=== PATIENT | female | born 1985 | race Caucasian/White ===

== ENCOUNTER → 2020-09-03 02:40 | Outpatient (CLI) | payer OTHER, SELFPAY ==
[2020-09-03 17:20] LABS: SARS-CoV-2 RNA PCR Negative
== END ==
PROVIDERS: PCP Internal Medicine; Visit Provider Obstetrics & Gynecology
DX: Z01.812 Encounter for preprocedural laboratory examination (principal); Z20.822 Contact with and (suspected) exposure to COVID-19
CPT/HCPCS: C9803; U0003; U0005

== ENCOUNTER 2020-09-04 00:45 | Day surgery (SDC) | payer OTHER, SELFPAY ==
--- NOTE | 2020-09-02 11:07 | PM.IMHP ---
H&P: HPI History of Present Illness Date/Time: 09/02/20 11:07 Chief Complaint: . Trimester missed AB Narrative: Yoly Kirkland is a 34 year old female whose last menstrual period was 10 and half weeks ago presents for suction D&C secondary to missed AB. Stat ultrasound in the office 3 9 confirming tubal demise at 7 and half weeks risks and benefits reviewed Review of Systems Review of Systems: All systems reviewed & are unremarkable except as noted in HPI and below Exam Const: General: no acute distress Eyes: General: appearance normal, both eyes and all related structures Neck: Neck: supple and no JVD Thyroid: thyroid normal Resp: Effort & Inspection: normal respiratory effort Auscultation: clear to auscultation bilaterally Cardio: Rate: regular rate Rhythm: regular rhythm GI: Inspection: non-distended GI Palp: Yes Soft to palpation, No Tenderness to palpation present (GI) and No Guarding due to palpation present (GI) Auscultation: normal bowel sounds : General: Yes bladder normal to palpation External Female Exam: normal external appearance Speculum Exam - Vagina: normal vaginal discharge and No vaginal bleeding Speculum Exam - Cervix: nontender Bimanual exam- vagina & uterus: bladder normal to palpation and No Cervical tenderness present OB/external & speculum: No vaginal bleeding Skin: General skin exam: no rashes or lesions noted Extrem: General: normal to inspection and no edema Psych: Mental Status: mental status grossly normal Affect: normal affect Assessment and Plan Additional Plan impression: 1St trimester missed AB Plan: Suction dilatation and curettage
[2020-09-03 09:27] VITALS: BMI 34.2
--- NOTE | 2020-09-03 12:26 | WPDANESEPPF ---
Anes - Initial Pre Proc Eval Procedure: Operation Date: 09/04/20 13:30 Proposed Procedures p Suction Dilation And Curettage - Ulysses Garcia MD Date/Time: 09/03/20 12:26 Surgeon: Ulysses Garcia MD Pre Op Diagnosis: Missed AB Patient Data Age: 34 Gender: F Height: 1.57 m Weight: 85 kg Allergies Allergy/AdvReac Type Severity Reaction Status Date / Time codeine Allergy Severe Dyspnea / Verified 09/04/20 13:03 SOB/itching Home Medications Medication Instructions Recorded Confirmed Type Classic 1 tab-cap PO DAILY 09/03/20 09/03/20 History albuterol sulfate 1 inh INHALATION Q4H PRN 09/03/20 09/04/20 History duloxetine 30 mg PO DAILY 09/03/20 09/04/20 History ondansetron HCl 4 mg PO Q6H PRN 09/03/20 09/03/20 History hydrocodone-acetaminophen 1 tablet PO Q6H PRN #20 tablet 09/04/20 Rx Patient hx anesthesia problems: none Family hx anesthesia problems: none PMFSH Past Medical History Medical History (Updated 09/04/20 @ 06:09 by Ulysses Garcia MD) Anxiety Asthma Depression Obesity PUD (peptic ulcer disease) Social History Social History Smoking status: Never smoker Living arrangements: with family Spiritual care concerns: No Anes - Eval Final PreProcedure Day of Procedure 09/03/20 12:26 Patient weight: obese Heart: regular rate and rhythm Lungs: clear to auscultation and normal air movement Airway: Mallampati scale class II Neurological: alert and oriented Last oral intake: >/= 8 hours ASA classification: II Emergent: no Anesthetic plan: proceed Anesthesia type and monitoring: general GIVS and LMA Informed Consent: The patient's anesthetic plan and its attendant risks and benefits were discussed with the patient/family/POA. Questions were solicited and answers provided to the satisfaction of the patient/family/POA.
--- NOTE | 2020-09-04 06:08 | WPDHPUPDATE1 ---
History and Physical Update Update Date/Time: 09/04/20 06:08 History and Physical has been reviewed, including an updated exam of the patient. There are NO changes in the patient's condition. Risks, benefits, and alternatives have been discussed and questions answered. Patient agrees to proceed with procedure.
[2020-09-04 12:31] VITALS: BP 139/98; PULSE 101; RESP 16; TEMP 36.7; O2SAT 99
[2020-09-04] MEDS: LACTATED RINGERS 1,000 ML 30 ML IV CONT (13:17)
[2020-09-04 13:21] LABS: Hematocrit 35.2 % (37.0-47.0); Hemoglobin 12.3 g/dL (12.0-15.0)
--- NOTE | 2020-09-04 13:26 | SUR.PREOP ---
pt informed delay in procedure.
[2020-09-04] MEDS: LIDOCAINE HCL 1% LOCAL INJ 20 ML VIAL 50 ML INFILTRATE (14:22)
--- NOTE | 2020-09-04 14:28 | PM.PROC ---
Procedure Note - Detailed Date of procedure: 09/04/20 Pre-op diagnosis: Missed AB Surgeon: Ulysses Garcia MD Postop diagnosis: Missed AB Procedure: Suction dilatation curettage Anesthesia: IV sedation local Findings,: Products of conception uterus sounded to 11cm. EBL: 75cc Complications: None Description of procedure: The patient is prepped draped in the normal sterile fashion placed in the dorsal lithotomy position. Under excellent IV sedation weighted speculum placed posterior fornix of vagina. Anterior lip of the cervix grasped with a single-tooth tenaculum. 2.5cc of 1% xylocaine anesthesia placed at 2:48 a.m. 10:00 a.m. respectively of the cervix. Uterus sounded to 11cm. Serial dilatation with fragmented dilators performed followed by passes of 10. Suction curette removing a moderate to large amount of tissue. When a good grating sound was heard no further tissue could be removed. Instruments were removed and accounted for the patient was awakened. All sponge, needle, instrument counts were correct. There were no immediate complications
[2020-09-04 14:31] VITALS: BP 136/93; PULSE 92; RESP 16; O2SAT 99
[2020-09-04] MEDS: fentaNYL CITRATE INJ (*CRX) 100 MCG/2 ML VIAL 25 MCG IV PUSH ×4 (14:54→15:05)
[2020-09-04 15:00] VITALS: BP 127/84; PULSE 86; RESP 16; O2SAT 99
[2020-09-04 15:30] VITALS: BP 114/74; PULSE 86; RESP 16
[2020-09-04] MEDS: oxyCODONE HCL (*CRX) 5 MG TAB IR PO (15:43)
[2020-09-04 16:00] VITALS: BP 114/76; PULSE 89; RESP 16
[2020-09-04 16:10] VITALS: BP 114/68; PULSE 85; RESP 16
== END 2020-09-04 16:35 | disposition home or self-care (01) ==
PROVIDERS: PCP Internal Medicine; Visit Provider Obstetrics & Gynecology
PROC: (CPT 59820; principal; 2020-09-04 13:30)
DX: O02.1 Missed abortion (principal); J45.909 Unspecified asthma, uncomplicated; F41.8 Other specified anxiety disorders; Z79.51 Long term (current) use of inhaled steroids
CPT/HCPCS: 59820; 36415; 85014; 85018; 85461; 88305; A9270; J2250; J2704; J3010; J7120

== ENCOUNTER 2022-09-22 08:22 | Outpatient (CLI) | payer BC, SELFPAY ==
--- NOTE | 2022-09-22 11:00 | NEURO_ITS ---
Impression: Patient reports a history of bilateral hand paresthesias. # Bilateral mild Carpal Tunnel Syndrome, left more than right. # Normal needle/EMG exam. # Clinical correlation recommended. Motor Nerve Conduction Upper Extremities Median Nerve Conduction Velocity (m/sec) Terminal Latency (msec) Response Voltage(mV) Elbow-Wrist Wrist Elbow Wrist Right 52 3.2 2 5 Left 51 4.5 4 3 Ulnar Nerve Conduction Velocity (m/sec) Terminal Latency (msec) Response Voltage(mV) Above Elbow Below Elbow Wrist Above Elbow Below Elbow Wrist Right 63 65 2.0 5 5 6 Left 62 60 2.0 6 6 7 F-Wave Latency Median (ms) Ulnar (ms) Right 26.0 25.4 Left 26.3 25.0 Sensory Nerve Conduction Upper Extremities Median Nerve Stimulation Terminal Latency (msec) Wrist/Digit Response Voltage (uV) Wrist Right 3.9/4.3 11 Left 4.3/5.1 08/06 Ulnar Nerve Stimulation Terminal Latency (msec) Wrist/Digit Response Voltage (uV) Wrist Right 2.0 20 Left 1.8 28 Radial Nerve Terminal Latency (msec) Response Voltage(mV) Right 1.6 48 Left 2.5 39 Left Right Muscles Examined Fibrillation Fasciculation Scarcity Voltage Duration Left Right Left Right Left Right Left Right Left Right Deltoid Biceps X X Brachioradialis Triceps X X Pronator Teres X X Ext Indicis X X Ext Digitorum X X Abd Poll Brev X X 1st Dorsal Interosseus Abd Dig Min MTDD
== END 2022-09-22 08:23 | disposition home or self-care (01) ==
LOC: ANHNEURO 08:23
PROVIDERS: PCP Family Medicine; Visit Provider Family Medicine
DX: R20.0 Anesthesia of skin (principal); G56.03 Carpal tunnel syndrome, bilateral upper limbs
CPT/HCPCS: 95886; 95911

== ENCOUNTER 2022-10-06 21:47 | Observation (INO) | payer BC, SELFPAY ==
[2022-10-06 22:03] VITALS: BMI 44.4
--- NOTE | 2022-10-06 22:04 | OBADM ---
This patient, Yoly Santacruz, admitted to the OB room OB Post 117 for observation. Patient/family oriented to hospital policies and general routines including ID bracelet, bed and alarms, visiting hours, pain management, procedures, bathroom and other care routines, personal items, smoking policy, room service/diet, and visiting hours. Patient/Family are encouraged to report perceived risks to care and to ask questions if they do not understand what they are told or what they should do.
[2022-10-06 22:31] LABS: Appearance Urine Clear (Clear); Bilirubin Urine Negative (Negative); Blood Urine Negative (Negative); Color Urine Yellow (Yellow); Glucose Urine UA Negative (Negative); Ketones Urine Negative (Negative); Leukocyte Esterase Ur Negative LEU/UL (Negative); Nitrate Urine Negative (Negative); Protein Urine Negative (Negative); Specific Grav Ur 1.009 (1.001-1.035); Urobilinogen Urine 0.2 mg/dL (<2.0); pH Urine 6.5 (5.0-9.0)
[2022-10-06 22:41] LABS: Add Urine Microscopic? NO
--- NOTE | 2022-10-08 09:16 | P.PNOB_ITS ---
OB - Triage/Final Diagnosis Visit Information Date of evaluation: 10/08/22 Reason for evaluation: threatened labor Comments/Additional reasons for admission: I have assessed the risk for this patient, Yoly Santacrzu, and determined that she would benefit from observation care. Evaluation Laboratory results: Laboratory Tests 10/06/22 22:20 Urine Color Yellow Urine Appearance Clear Urine pH 6.5 Ur Specific [place] 1.009 Urine Protein Negative Urine Glucose (UA) Negative Urine Ketones Negative Ur Blood (Man) Negative Urine Nitrate Negative Urine Bilirubin Negative Urine Urobilinogen 0.2 Leukocyte Esterase Rfl Negative
== END 2022-10-06 23:50 | disposition home or self-care (01) ==
PROVIDERS: Admitting Provider Obstetrics & Gynecology; PCP Family Medicine; Visit Provider Obstetrics & Gynecology
DX: O47.03 False labor before 37 completed weeks of gestation, third trimester (principal); Z3A.34 34 weeks gestation of pregnancy
CPT/HCPCS: 81003; G0378; G0379

== ENCOUNTER 2022-10-14 09:32 | Outpatient (CLI) | payer BC, SELFPAY ==
[2022-10-14 09:44] VITALS: PULSE 108; O2SAT 97
[2022-10-14 09:51] VITALS: BP 147/98; PULSE 112
[2022-10-14 10:00] VITALS: BP 136/86; PULSE 121
[2022-10-14 10:15] VITALS: BP 133/86; PULSE 111
[2022-10-14 10:27] LABS: Basophils Absolute Auto 0.1 K/mm3 (0.0-0.1); Basophils Percent Auto 0.4 % (0.2-1.2); Eosinophils Absolute Auto 0.2 K/mm3 (0-0.3); Eosinophils Percent Auto 1.1 % (0-4.4); Hemoglobin 12.9 g/dL (12.0-15.0); Immature Granulocyte Absolute 0.36 K/mm3 (0.00-0.031); Immature Granulocyte Percent A 2.2 % (0-0.5); Lymphocytes Absolute Auto 2.56 K/mm3 (0.9-3.2); Mean Corpuscular HGB Conc 33.1 g/dl (32-36); Mean Corpuscular Hemoglobin 29.3 pg (26-34); Mean Corpuscular Volume 88.4 fl (80-100); Mean Platelet Volume 10.7 fl (7.4-10.4); Monocytes Absolute Auto 1.2 K/mm3 (0.1-0.6); Monocytes Percent Auto 7.7 % (2.6-8.5); Neutrophils Absolute Auto 11.6 K/mm3 (1.3-6.7); Neutrophils Percent Auto 72.6 % (45.5-73.1); Platelet Count Result 277 k/mm3 (150-375); Red Blood Count 4.41 M/mm3 (4.2-5.4); Red Cell Distribution Width 13.9 % (11.5-14.5)
[2022-10-14 10:37] LABS: Alanine Aminotransferase 18 U/L (6-35); Albumin Level 3.7 g/dL (3.5-5.1); Alkaline Phosphatase 141 U/L (38-126); Anion Gap 7 mmol/L (8-16); Aspartate Amino Transferase 18 U/L (14-36); Bilirubin,Total 0.3 mg/dL (0.2-1.3); Blood Urea Nitrogen 5 mg/dL (7-17); Calcium 9.2 mg/dL (8.4-10.2); Carbon Dioxide 23 mmol/L (22-30); Chloride 105 mmol/L (98-107); Estimated Glomerular Filt Rate > 60; Glucose 74 mg/dL (65-110); Potassium 3.9 mmol/L (3.4-5.0); Sodium 135 mmol/L (137-145); Uric Acid 4.7 mg/dL (2.5-7.5)
[2022-10-14 10:38] LABS: Creatinine Urine 17.4 mg/dL; Total Protein Urine Random 16 mg/dL; Ur Ttl Prot Creatinine Ratio 0.92 mg/mg (0-0.20)
[2022-10-14 10:44] LABS: Appearance Urine Clear (Clear); Bacteria Urine None Seen /hpf; Bilirubin Urine Negative (Negative); Blood Urine 3+ (Negative); Color Urine Yellow (Yellow); Glucose Urine UA Negative (Negative); Ketones Urine Negative (Negative); Leukocyte Esterase Ur Negative LEU/UL (NEGATIVE); Need Manual Microscopic Need Manual; Nitrate Urine Negative (Negative); Non Pathogenic Casts 0-2; Protein Urine Negative (Negative); RBC Urine 0-2 /hpf (0-2); Specific Grav Ur 1.003 (1.001-1.035); Squamous Epithelial Cell Urine None seen /hpf (Few); Urobilinogen Urine 0.2 mg/dL (<2.0); WBC Urine 0-5 /hpf (0-3)
[2022-10-14 11:16] VITALS: BP 133/86; PULSE 112
--- NOTE | 2022-10-14 11:22 | PC.NURSE ---
Pt here from Dr. Catarino Godoy office for PIH evaluation. Labs called to Dr. Catarino Godoy. Pt to be discharged home and return tomorrow for NST BP check when she returns her urine.
[2022-10-14 13:42] LABS: Add Urine Microscopic? YES
== END 2022-10-14 11:30 | disposition home or self-care (01) ==
LOC: ANHOBOP 09:35 → ANHOBPP 09:39
PROVIDERS: PCP Family Medicine; Visit Provider Obstetrics & Gynecology
DX: O13.9 Gestational [pregnancy-induced] hypertension without significant proteinuria, unspecified trimester (principal); Z3A.00 Weeks of gestation of pregnancy not specified
CPT/HCPCS: 36415; 59025; 80053; 81001; 82570; 84156; 84550; 85025; 87086; 99199

== ENCOUNTER 2022-10-15 13:20 | Outpatient (NON) | payer BC, SELFPAY ==
[2022-10-15 15:16] LABS: Total Volume 24 Hour Urine 1800 ml
[2022-10-15 15:18] LABS: Total Protein Urine 24 Hr 126 mg/24hr (28-141); Total Protein Urine Random 7 mg/dL
[2022-10-15 15:19] LABS: Creatinine 24 Hour Urine 1.7 gm/24 (0.8-1.8); Creatinine Urine 96.6 mg/dL
== END 2022-10-15 13:21 | disposition home or self-care (01) ==
LOC: ANHOBOP 13:36
PROVIDERS: PCP Family Medicine; Visit Provider Obstetrics & Gynecology
DX: O99.891 Other specified diseases and conditions complicating pregnancy (principal); R03.0 Elevated blood-pressure reading, without diagnosis of hypertension
CPT/HCPCS: 81050; 82570; 84156

== ENCOUNTER 2022-10-19 10:08 | Outpatient (CLI) | payer BC, SELFPAY ==
[2022-10-19 10:35] VITALS: BP 142/85; PULSE 113
[2022-10-19 10:45] VITALS: BP 152/85; PULSE 105
[2022-10-19 10:51] LABS: Basophils Absolute Auto 0.1 K/mm3 (0.0-0.1); Basophils Percent Auto 0.4 % (0.2-1.2); Eosinophils Absolute Auto 0.2 K/mm3 (0-0.3); Hematocrit 38.9 % (37.0-47.0); Hemoglobin 12.8 g/dL (12.0-15.0); Immature Granulocyte Absolute 0.34 K/mm3 (0.00-0.031); Immature Granulocyte Percent A 2.1 % (0-0.5); Lymphocytes Absolute Auto 2.41 K/mm3 (0.9-3.2); Lymphocytes Percent Auto 14.6 % (18.3-44.2); Mean Corpuscular HGB Conc 32.9 g/dl (32-36); Mean Corpuscular Hemoglobin 29.3 pg (26-34); Mean Platelet Volume 10.9 fl (7.4-10.4); Monocytes Absolute Auto 1.2 K/mm3 (0.1-0.6); Monocytes Percent Auto 7.3 % (2.6-8.5); Neutrophils Absolute Auto 12.4 K/mm3 (1.3-6.7); Neutrophils Percent Auto 74.6 % (45.5-73.1); Platelet Count Result 277 k/mm3 (150-375); Red Blood Count 4.37 M/mm3 (4.2-5.4); Red Cell Distribution Width 13.9 % (11.5-14.5); White Blood Count 16.6 K/mm3 (4.5-10.0)
[2022-10-19 11:00] VITALS: BP 139/96; PULSE 114
[2022-10-19 11:02] LABS: Alanine Aminotransferase 17 U/L (6-35); Albumin Level 3.6 g/dL (3.5-5.1); Alkaline Phosphatase 153 U/L (38-126); Anion Gap 8 mmol/L (8-16); Aspartate Amino Transferase 17 U/L (14-36); Bilirubin,Total 0.3 mg/dL (0.2-1.3); Blood Urea Nitrogen 7 mg/dL (7-17); Calcium 9.1 mg/dL (8.4-10.2); Carbon Dioxide 22 mmol/L (22-30); Chloride 105 mmol/L (98-107); Creatinine Urine 142.2 mg/dL; Estimated Glomerular Filt Rate > 60; Glucose 99 mg/dL (65-110); Potassium 4.1 mmol/L (3.4-5.0); Sodium 135 mmol/L (137-145); Total Protein Urine Random 16 mg/dL; Ur Ttl Prot Creatinine Ratio 0.11 mg/mg (0-0.20); Uric Acid 4.6 mg/dL (2.5-7.5)
[2022-10-19 11:05] VITALS: BP 139/96; PULSE 115
[2022-10-19 11:05] LABS: Appearance Urine Cloudy (Clear); Bacteria Urine 2+ /hpf; Bilirubin Urine Negative (Negative); Blood Urine 1+ (Negative); Color Urine Yellow (Yellow); Glucose Urine UA Negative (Negative); Ketones Urine Trace mg/dL (Negative); Leukocyte Esterase Ur Trace LEU/UL (NEGATIVE); Need Manual Microscopic Reviewed; Nitrate Urine Negative (Negative); Non Pathogenic Casts 0-2; Protein Urine 1+ mg/dL (Negative); Squamous Epithelial Cell Urine Occasional /hpf (Few); Urobilinogen Urine 0.2 mg/dL (<2.0); WBC Urine 21-50 /hpf (0-3)
[2022-10-19 11:06] LABS: Add Urine Microscopic? YES
[2022-10-19 11:15] VITALS: BP 137/84; PULSE 107
[2022-10-19 11:30] VITALS: BP 132/85; PULSE 110
--- NOTE | 2022-10-19 11:34 | PC.NURSE ---
VS and labs reported to MD. Discharge order received and schedule NST and blood pressure check on Tuesday.
--- NOTE | 2022-10-19 12:36 | PM.OBTRLD ---
OB - Triage/Final Diagnosis Visit Information Date of evaluation: 10/19/22 Reason for evaluation: other (Gestational hypertension) Comments/Additional reasons for admission: I have assessed the risk for this patient, Yoly Santacruz, and determined that she would benefit from observation care. Evaluation Laboratory results: Laboratory Tests 10/19/22 10/19/22 10/19/22 10:23 10:23 10:23 WBC 16.6 H RBC 4.37 Hgb 12.8 Hct 38.9 MCV 89.0 MCH 29.3 MCHC 32.9 RDW 13.9 Plt Count 277 MPV 10.9 H Immature Gran % (Auto) 2.1 H Neut % (Auto) 74.6 H Lymph % (Auto) 14.6 L [place] % (Auto) 7.3 Eos % (Auto) 1.0 Baso % (Auto) 0.4 Lymph # (Auto) 2.41 [place] # (Auto) 1.2 H Eos # (Auto) 0.2 Baso # (Auto) 0.1 Abs Immat Gran (auto) 0.34 H Absolute Neuts (auto) 12.4 H Absolute Nucleated RBC 0.0 Nucleated RBC % 0.0 Sodium Potassium Chloride Carbon Dioxide Anion Gap BUN Creatinine Estim Creat Clear Calc Estimated GFR Glucose Uric Acid Calcium Total Bilirubin AST ALT Alkaline Phosphatase Total Protein Albumin Urine Color Yellow Urine Appearance Cloudy H Urine pH 6.0 Ur Specific [place] 1.020 Urine Protein 1+ H Urine Glucose (UA) Negative Urine Ketones Trace H Ur Blood (Man) 1+ H Urine Nitrate Negative Urine Bilirubin Negative Urine Urobilinogen 0.2 Ur Leukocyte Esterase Trace H Add Ur Microanalysis Reviewed Urine RBC 11-20 H Urine WBC 21-50 Ur Squamous Epith Cells Occasional Urine Bacteria 2+ H Urine Casts 0-2 U Random Total Protein 16 Urine Creatinine 142.2 Protein/Creat Ratio 2 0.11 10/19/22 10:23 WBC RBC Hgb Hct MCV MCH MCHC RDW Plt Count MPV Immature Gran % (Auto) Neut % (Auto) Lymph % (Auto) [place] % (Auto) Eos % (Auto) Baso % (Auto) Lymph # (Auto) [place] # (Auto) Eos # (Auto) Baso # (Auto) Abs Immat Gran (auto) Absolute Neuts (auto) Absolute Nucleated RBC Nucleated RBC % Sodium 135 L Potassium 4.1 Chloride 105 Carbon Dioxide 22 Anion Gap 8 BUN 7 Creatinine 0.40 L Estim Creat Clear Calc Not Reportable Estimated GFR > 60 Glucose 99 Uric Acid 4.6 Calcium 9.1 Total Bilirubin 0.3 AST 17 ALT 17 Alkaline Phosphatase 153 H Total Protein 7.0 Albumin 3.6 Urine Color Urine Appearance Urine pH Ur Specific [place] Urine Protein Urine Glucose (UA) Urine Ketones Ur Blood (Man) Urine Nitrate Urine Bilirubin Urine Urobilinogen Ur Leukocyte Esterase Add Ur Microanalysis Urine RBC Urine WBC Ur Squamous Epith Cells Urine Bacteria Urine Casts U Random Total Protein Urine Creatinine Protein/Creat Ratio 2 Vital signs: Vital Signs - 24 hr 10/19/22 10:35 10/19/22 10:45 10/19/22 11:00 Pulse Rate 113 H 105 H 114 H Blood Pressure 142/85 H 152/85 H 139/96 H Blood Pressure [Right Arm] 10/19/22 11:15 10/19/22 11:30 10/19/22 11:05 Pulse Rate 107 H 110 H 115 H Blood Pressure 137/84 132/85 Blood Pressure [Right Arm] 139/96 H
== END 2022-10-19 11:41 | disposition home or self-care (01) ==
LOC: ANHOBOP 10:12 → ANHOBPP 10:13
PROVIDERS: PCP Family Medicine; Visit Provider Obstetrics & Gynecology
DX: O13.9 Gestational [pregnancy-induced] hypertension without significant proteinuria, unspecified trimester (principal); Z3A.00 Weeks of gestation of pregnancy not specified
CPT/HCPCS: 36415; 59025; 80053; 81001; 82570; 84156; 84550; 85025; 87086; 99199

== ENCOUNTER 2022-10-25 08:29 | Outpatient (RCR) | payer BC, SELFPAY ==
[2022-08-23 09:45] VITALS: BP 131/75; PULSE 115
--- NOTE | 2022-08-23 10:00 | PC.NURSE ---
Catarino Godoy updated on the pt's decreased movement. Pt feeling and marking movement. Pt reassured and feeling better. Order received for pt to discharge with kick counts.
[2022-10-15 14:10] VITALS: BP 139/86; PULSE 102
[2022-10-22 09:35] VITALS: BP 130/82; PULSE 110
[2022-10-25 08:58] VITALS: BP 143/86; PULSE 114
== END 2022-11-21 23:59 | disposition home or self-care (01) ==
LOC: ANHOBOP 08:29
PROVIDERS: PCP Family Medicine; Visit Provider Obstetrics & Gynecology
DX: O36.8130 Decreased fetal movements, third trimester, not applicable or unspecified (principal); Z3A.28 28 weeks gestation of pregnancy; O26.893 Other specified pregnancy related conditions, third trimester; R03.0 Elevated blood-pressure reading, without diagnosis of hypertension; Z3A.36 36 weeks gestation of pregnancy; Z3A.37 37 weeks gestation of pregnancy
CPT/HCPCS: 59025

== ENCOUNTER 2022-11-01 07:03 | Outpatient (CLI) | payer BC, SELFPAY ==
[2022-11-01] VITALS (23 sets, daily range): BP systolic 128–137; BP diastolic 82–93; PULSE 91–117; O2SAT 95–100
--- NOTE | ~2022-11-01 | US_ITS ---
EXAMINATION: US OB BPP wo non-stress DATE: 11/01/2022 10:36 CDT INDICATION: Nonreassuring heart tones. TECHNIQUE: Real-time transabdominal obstetric ultrasound. FINDINGS: No prior studies for comparison. There is a single living fetus in breech presentation. The placenta is anterior without placenta pre via. cardiac activity and movement is noted with a heart rate of 122 beats per minute. Biophysical profile: breathin of 2 movement: 2 of 2 tone: 2 of 2 Amniotic flud pocket: 2 of 2 Total score: 8 of 8 IMPRESSION: 1. Single living intrauterine in breech presentation. 2: Total biophysical profile score of 02/01. Reviewed, dictated and finalized at location B. IMPRESSION: 1. Single living intrauterine in breech presentation. 2: Total biophysical profile score of 8/8.
--- NOTE | 2022-11-01 07:54 | W.PM.PROC2 ---
Procedure Note - Detailed Date of Procedure 11/01/22 Pre-op Diagnosis External Version Post-op Diagnosis Same Procedure Performed Attempted external version Surgeon Ulysses Godoy MD Anesthesia None Indications /a 37-year-old 2 para 0 at 38 half weeks gestation with moshe breech presentation. Findings Baby in moshe breech presentation. Description of Procedure Multiple attempts were made to turn the baby externally without success. The heart tones remained reassuring throughout. She stated she could no longer take the pressure and discomfort so the procedure was aborted Estimated Blood Loss 0 Drains No Packing No Pathology None sent Complications No immediate complications Condition Stable Disposition No change
--- NOTE | 2022-11-01 10:43 | PC.NURSE ---
Dr. Catarino Godoy on the unit. reviewed tracing and BPP reported 02/01. Discharge order received.
== END 2022-11-01 10:53 | disposition home or self-care (01) ==
LOC: ANHOBOP 07:07 → ANHOBPP 07:08
PROVIDERS: PCP Family Medicine; Visit Provider Obstetrics & Gynecology
DX: O32.1XX0 Maternal care for breech presentation, not applicable or unspecified (principal); Z3A.00 Weeks of gestation of pregnancy not specified
CPT/HCPCS: 76819; 99199

== ENCOUNTER 2022-11-08 08:16 | Outpatient (CLI) | payer BC, SELFPAY ==
[2022-11-08 08:50] LABS: Hematocrit 37.6 % (37.0-47.0); Hemoglobin 12.4 g/dL (12.0-15.0); Mean Corpuscular Hemoglobin 29.5 pg (26-34); Mean Corpuscular Volume 89.5 fl (80-100); Mean Platelet Volume 11.3 fl (7.4-10.4); Platelet Count Result 215 k/mm3 (150-375); Red Cell Distribution Width 14.3 % (11.5-14.5); White Blood Count 13.5 K/mm3 (4.5-10.0)
[2022-11-09 12:11] LABS: Rapid Plasma Reagin Non-Reactive (NonReactive)
== END 2022-11-08 08:17 | disposition home or self-care (01) ==
PROVIDERS: PCP Family Medicine; Visit Provider Obstetrics & Gynecology
DX: Z34.93 Encounter for supervision of normal pregnancy, unspecified, third trimester (principal); Z3A.00 Weeks of gestation of pregnancy not specified
CPT/HCPCS: 36415; 85027; 86592; 86850; 86900; 86901

== ENCOUNTER 2022-11-09 10:01 | Inpatient (IN) | payer BC, SELFPAY ==
--- NOTE | 2022-11-04 20:27 | HP_ITS ---
This report was moved to the correct visit on 11/15/2022. Original report was signed by Ulysses Tomas MD on 11/04/222026. H&P: HPI History of Present Illness Date/Time: 11/04/22 20:25 Chief Complaint: breech presentation with gestational hypertension Narrative: this is 37 year primigravida admitted a 38 half weeks gestation for primary section secondary to elevated blood pressure and breech presentation. Attempt was made at external version and this was unsuccessful. Risks and benefits of the procedure reviewed. Her blood pressures have been slightly elevated the she has been watched closely PMFSH Past Medical History Medical History Abnormal colonoscopy Anxiety Asthma Asthma BMI 40.0-44.9, adult Depression Depression Failed tendon repair Obesity PUD (peptic ulcer disease) UTI (urinary tract infection) Viral exanthemata Surgical History Surgical History H/O dilation and curettage History of tonsillectomy Family History Family History Mother Anxiety Arthritis Depression Irritable bowel Sibling Asthma Chronic pain Thyroid disease Father Diabetes mellitus Grandparent Shingles Social History Social History Smoking status: Former smoker Tobacco type: cigarettes Smoking end date: 01/08/19 Alcohol intake: current Alcohol use details: Patient drinks alcohol approx 1 x mo. Substance use: never Substance use type: marijuana Other substance usage details: Patient uses marijuana approx 1 x mo. Living arrangements: with family Spiritual care concerns: No Meds Home Medications and Allergies Home Medications Medication Instructions Recorded Confirmed Type albuterol sulfate 90 mcg/actuation 1 inh inhalation Q4H PRN 09/03/20 07/26/22 History aerosol inhaler Bronchospasm vitamin#30 30 mg iron-10 cap PO 06/29/22 07/26/22 History mg iron-folic acid 1 mg-omg3 capsule Allergies Allergy/AdvReac Type Severity Reaction Status Date / Time codeine Allergy Severe Dyspnea / Verified 10/14/22 10:33 SOB/itching Exam Const: General: cooperative, healthy appearing, comfortable and overweight Orientation/consciousness: oriented to person, oriented to place and oriented to time HENMT: Head: normal to inspection Chest: Chest palpation & inspection: normal inspection of the chest Resp: Effort & Inspection: normal respiratory effort Cardio: Rate: regular rate Rhythm: regular rhythm Heart sounds: S1 normal heart sound present and S2 normal heart sound present GI: Inspection: normal to inspection ( gravid soft uterus) Auscultation: normal bowel sounds : External Female Exam: normal external appearance Speculum Exam - Vagina: normal appearance of the vagina Assessment and Plan Assessment and plan (1) Term : Code(s): Z34.90 - Encounter for supervision of normal , unspecified, unspecified trimester Status: Acute (2) Breech presentation: Code(s): O32.1XX0 - Maternal care for breech presentation, not applicable or unspecified Status: Acute (3) Gestational hypertension: Code(s): O13.9 - Gestational [-induced] hypertension without significant proteinuria, unspecified trimester Status: Acute Plan primary low-transverse ce
[2022-11-09] VITALS (46 sets, daily range): BP systolic 88–147; BP diastolic 38–87; PULSE 84–237; RESP 14–24; TEMP 36.4–36.8; O2SAT 78–100; BMI 46.7
--- NOTE | 2022-11-09 07:17 | WPDHPUPDATE1 ---
History and Physical Update Update Date/Time: 11/09/22 07:17 History and Physical has been reviewed, including an updated exam of the patient. There are NO changes in the patient's condition. Risks, benefits, and alternatives have been discussed and questions answered. Patient agrees to proceed with procedure.
--- NOTE | 2022-11-09 07:18 | WPDHPUPDATE1 ---
History and Physical Update Update Date/Time: 11/09/22 07:18 History and Physical has been reviewed, including an updated exam of the patient. There are NO changes in the patient's condition. Risks, benefits, and alternatives have been discussed and questions answered. Patient agrees to proceed with procedure.
--- NOTE | 2022-11-09 08:23 | P.PNAN_ITS ---
Anes - Initial Pre Proc Eval Procedure: Operation Date: 11/09/22 12:00 Proposed Procedures p Section - Ulysses Godoy MD Date/Time: 11/09/22 08:23 Surgeon: Ulysses Godoy MD Pre Op Diagnosis: C/S Patient Data Age: 37 Gender: F Height: Weight: Allergies Allergy/AdvReac Type Severity Reaction Status Date / Time codeine Allergy Severe Dyspnea / Verified 10/14/22 10:33 SOB/itching Home Medications Medication Instructions Recorded Confirmed Type albuterol sulfate 90 mcg/actuation 1 inh inhalation Q4H PRN 09/03/20 11/09/22 History aerosol inhaler Bronchospasm vitamin#30 30 mg iron-10 1 cap PO DAILY 06/29/22 11/09/22 History mg iron-folic acid 1 mg-omg3 capsule Patient hx anesthesia problems: none Family hx anesthesia problems: none Results Review: All pre-operative results and documents have been reviewed as part of the pre- operative evaluation. [facility] Past Medical History Medical History Abnormal colonoscopy Anxiety Asthma Asthma BMI 40.0-44.9, adult Depression Depression Failed tendon repair Obesity PUD (peptic ulcer disease) UTI (urinary tract infection) Viral exanthemata Surgical History Surgical History H/O dilation and curettage History of tonsillectomy Family History Family History Mother Anxiety Arthritis Depression Irritable bowel Sibling Asthma Chronic pain Thyroid disease Father Diabetes mellitus Grandparent Shingles Social History Social History Smoking status: Never smoker Tobacco type: cigarettes Second hand tobacco smoke exposure: Yes Smoking end date: 01/08/19 Alcohol intake: current Alcohol use details: Patient drinks alcohol approx 1 x mo. Substance use: never Substance use type: marijuana Other substance usage details: Patient uses marijuana approx 1 x mo. Lack of Transportation: No Lack of Food: Never True Current Housing: I Have Housing Concerned About Future Housing: No Difficulty Paying Gas/Electric Bills: No Difficulty Paying for Meds: No Currently Unemployed: No Education: Associate Degree Difficulty w/ Childcare or Family Care: No Living arrangements: with family Spiritual care concerns: No Anes - Eval Final PreProcedure Day of Procedure 11/09/22 08:23 Patient weight: obese Heart: regular rate and rhythm Lungs: clear to auscultation and normal air movement Airway: Mallampati scale class II Neurological: alert and oriented Last oral intake: >/= 8 hours ASA classification: III Emergent: no Anesthetic plan: proceed Anesthesia type and monitoring: regional spinal Results Review: All pre-operative results and documents have been reviewed as part of the pre- operative evaluation. Informed Consent: The patient's anesthetic plan and its attendant risks and benefits were discussed with the patient/family/POA. Questions were solicited and answers provided to the satisfaction of the patient/family/POA.
[2022-11-09] MEDS: LACTATED RINGERS 1,000 ML 999 ML IV CONT (10:38)
--- NOTE | 2022-11-09 12:25 | W.PM.PROC2 ---
Procedure Note - Detailed Date of Procedure 11/09/22 Pre-op Diagnosis C/S breech Post-op Diagnosis Same Procedure Performed primary low-transverse section Surgeon Ulysses Godoy MD Anesthesia Spinal Indications 39 week with breech presentation failed external version Findings female infant breech to maternal left Description of Procedure patient was prepped draped in normal sterile fashion placed in supine position. Under excellent spinal anesthetic the abdomen was entered in Pfannenstiel fashion progressive layers of fascia. fashion sized midline cured upward outward fashion bilaterally. Underlying muscles were sharply dissected. Parietal peritoneum below by [place] clamps and by sharp dissection. This carried superiorly and inferiorly the blood dome of the bladder. Bladder blade placed and a bladder flap formed. Bladder blade returned and a low-transverse incision made the breech was delivered to the maternal left. Next spot medially cut medially and the head delivered in the flexed position. Cord clamped times and cut and infant passed off the table an excellent cry given Apgars of 8 5minutes respectively. Placenta delivered intact manually after drawn cord blood. After assuring no membranes remained in the uterus, the uterus was closed in continuous running locking 0 Vicryl lateral edge to lateral edge. This followed by 2nd imbricating running locking 0 Vicryl edge to edge. Hemostasis was assured. Ovaries and tubes appeared within normal limits the uterus was returned the abdomen. Hysterotomy incision inspected 1 last time no hemostatic. Laps removed and accounted for. Fascia closed with continuous running 0 Vicryl from lateral edge to midline bilateral. Irrigation subcutaneous layer the skin closed with 4 Monocryl glue. Blood loss was 140cc. All sponge, needle, instrument counts correct. There were no immediate complications Estimated Blood Loss 140 Drains No Packing No Pathology None sent Complications No immediate complications Condition Stable Disposition PACU
--- NOTE | 2022-11-09 13:23 | P.DS_ITS ---
DS: Admitting Diagnosis Discharge Date 11/12/2022 Admitting Diagnosis breech presentation at term DS: Discharge Diagnosis Discharge Diagnosis (1) Gestational hypertension: Code(s): O13.9 - Gestational [-induced] hypertension without significant proteinuria, unspecified trimester Status: Acute (2) Term : Code(s): Z34.90 - Encounter for supervision of normal , unspecified, unspecified trimester Status: Acute DS: Summary Hospital Course Reason for hospitalization: patient was admitted for primary section secondary to breech pr esentation failed external version Hospital Course: the patient underwent an unremarkable primary section on 11/09/2022. Her hospital course. She was ambulating eating regular voiding without difficulty generally without complaints. Routine discharge instructions were given Time Spent with Patient Time attestation: Total time spent providing and/or coordinating discharge services: Exam Const: General: cooperative, healthy appearing and comfortable Nutritional Appearance: overweight Orientation/consciousness: oriented to person, oriented to place and oriented to time Resp: Effort & Inspection: normal respiratory effort Cardio: Rate: regular rate Rhythm: regular rhythm Heart sounds: S1 normal heart sound present and S2 normal heart sound present GI: Inspection: normal to inspection ( fundus firm below the umbilicus) and incision ( wound is clean dry and intact) Discharge Plan Discharge Attending physician on discharge: Ulysses Tomas Discharging Clinician: Ulysses Tomas Patient Disposition: Home, Self-Care Activity: no shower, no straining, may drive after 2 weeks and pelvic rest Diet: heart healthy Wound Care Instructions: follow printed instructions Patient Instructions: Antibiotic Form Stand Alone Forms: General Discharge Information Follow-up/Referrals: Ulysses Tomas MD [Physician] - Discharge Medications: New tramadol 50 mg tablet 50 mg PO Q4H PRN (Reason: pain) Qty: 30 0RF No Action PNV #[id number] 30 mg iron-10 mg iron-1 mg capsule 1 cap PO DAILY albuterol sulfate 90 mcg/actuation HFA aerosol inhaler 1 inh INHALATION Q4H PRN (Reason: Bronchospasm) Date of admission: 11/09/22 10:01 Primary Care Provider: Adolfo Mixon Admitting Provider: Ulysses Tomas Attending physician on admission: Ulysses Tomas Condition: Stable
[2022-11-09] MEDS: OXYTOCIN 30 UNITS/NS 500 ML 30 UNITS/500 ML BAG 125 UNITS IV CONT (13:30)
[2022-11-09] MEDS: KETOROLAC 30 MG/ML VIAL (*BKC) IV PUSH ×2 (15:20→21:38)
[2022-11-09] MEDS: ONDANSETRON INJ 4 MG/2 ML VIAL IV PUSH (16:27)
[2022-11-09] MEDS: DEXTROSE 5%/0.45% SOD CHL 1,000 ML 125 ML IV CONT (19:04)
[2022-11-10] MEDS: KETOROLAC 30 MG/ML VIAL (*BKC) IV PUSH (03:29)
[2022-11-10 04:00] VITALS: BP 128/60; PULSE 104; RESP 18; TEMP 36.7; O2SAT 97
[2022-11-10 04:55] LABS: Basophils Percent Auto 0.2 % (0.2-1.2); Eosinophils Absolute Auto 0.1 K/mm3 (0-0.3); Eosinophils Percent Auto 0.8 % (0-4.4); Hematocrit 33.9 % (37.0-47.0); Immature Granulocyte Absolute 0.24 K/mm3 (0.00-0.031); Immature Granulocyte Percent A 1.6 % (0-0.5); Lymphocytes Absolute Auto 1.91 K/mm3 (0.9-3.2); Mean Corpuscular HGB Conc 32.4 g/dl (32-36); Mean Corpuscular Hemoglobin 29.4 pg (26-34); Mean Corpuscular Volume 90.6 fl (80-100); Mean Platelet Volume 11.8 fl (7.4-10.4); Monocytes Absolute Auto 1.2 K/mm3 (0.1-0.6); Monocytes Percent Auto 7.9 % (2.6-8.5); Neutrophils Absolute Auto 11.2 K/mm3 (1.3-6.7); Neutrophils Percent Auto 76.5 % (45.5-73.1); Nucleated Red Blood Cells Perc 0.1 % (0.0-0.2); Platelet Count Result 219 k/mm3 (150-375); Red Blood Count 3.74 M/mm3 (4.2-5.4); Red Cell Distribution Width 14.3 % (11.5-14.5); White Blood Count 14.6 K/mm3 (4.5-10.0)
--- NOTE | 2022-11-10 06:10 | P.PNOB_ITS ---
OB - PN: Subj Subjective Date/time seen: 11/10/22 06:10 Patient comments: no complaints and pain well controlled baby status: doing well OB - PN: Obj Data Labs 11/10/22 03:28 Labs: Laboratory Results - last 24 hr 11/10/22 03:28 WBC 14.6 H RBC 3.74 L Hgb 11.0 L Hct 33.9 L MCV 90.6 MCH 29.4 MCHC 32.4 RDW 14.3 Plt Count 219 MPV 11.8 H Immature Gran % (Auto) 1.6 H Neut % (Auto) 76.5 H Lymph % (Auto) 13.0 L [place] % (Auto) 7.9 Eos % (Auto) 0.8 Baso % (Auto) 0.2 Lymph # (Auto) 1.91 [place] # (Auto) 1.2 H Eos # (Auto) 0.1 Baso # (Auto) 0.0 Abs Immat Gran (auto) 0.24 H Absolute Neuts (auto) 11.2 H Absolute Nucleated RBC 0.0 Nucleated RBC % 0.1 OB - PN A/P Plan day: 1 Plan: routine care Time Spent With Patient Time: Total time spent is greater than 50% in coordination of care (as documented) at patient's floor/unit and/or counseling patient: Time with patient: less than 15 minutes Exam Const: General: cooperative, healthy appearing and comfortable Nutritional Appearance: average body habitus Orientation/consciousness: oriented to person, oriented to place and oriented to time HENMT: Head: normal to inspection Resp: Effort & Inspection: normal respiratory effort Cardio: Rate: regular rate Rhythm: regular rhythm Heart sounds: S1 normal heart sound present and S2 normal heart sound present GI: Inspection: normal to inspection and incision ( wound clean dry and intact)
[2022-11-10] MEDS: traMADol HCL (*CRX) 50 MG TABLET PO ×3 (08:45→20:45)
[2022-11-10] MEDS: DOCUSATE SODIUM 100 MG CAPSULE PO ×2 (08:45→20:45)
[2022-11-10] MEDS: MULTIVIT/MIN/PREN/FOL AC/IRON TABLET 1 TAB PO (09:00)
[2022-11-10 09:50] VITALS: BP 139/90; PULSE 108; RESP 18; TEMP 37.4; O2SAT 97
[2022-11-10 12:14] VITALS: BP 139/90; PULSE 112; RESP 16; TEMP 37.5; O2SAT 97
[2022-11-10] MEDS: IBUPROFEN 600 MG TABLET PO ×2 (13:00→20:45)
--- NOTE | 2022-11-10 14:27 | WPDANLDPN2 ---
Anes-Prog Note L&D Date/Time: 11/10/22 14:27 Comfortable throughout: section Neuraxial method: spinal Epidural/Spinal procedure site: clean & non-tender Neuro status: Neuro function grossly intact. Cardiovascular status: normal Respiratory status: normal Airway patency: baseline Mental status: baseline Post-Op hydration status: normal Vital Signs: Last Vital Signs Temp 99.5 F 11/10/22 12:14 Pulse 112 H 11/10/22 12:14 Resp 16 11/10/22 12:14 BP 139/90 11/10/22 12:14 Pulse Ox 97 11/10/22 12:14 O2 Del Method Room Air 11/10/22 08:30 Pain score (VAS): 0/10 I/O: Intake & Output 11/09/22 11/10/22 11/10/22 23:59 07:59 15:59 Intake Total 500 3150 1000 Output Total 200 1400 800 Balance 300 1750 200 Post-procedural complaints: none Patient feedback: Patient satisfied with anesthetic care.
--- NOTE | 2022-11-10 14:27 | WPDANLDNPN2 ---
Anes-Prog Note L&D-Neuraxial Date/Time: 11/10/22 14:27 Neuraxial medications: intrathecal PF morphine Opiod-related complaints: none Patient feedback: Patient satisfied with post-operative pain management.
--- NOTE | 2022-11-10 15:35 | PC.NURSE ---
1009- Mother is working on the certificate. Introductions were made and name written on the board to call for assistance. [id number] Purposefully rounded to assess needs. The start of the last feeding was 0800 this morning. Mother consented to assistance with waking for . Demonstrated unwrapping , placing infant [id number] upright on mother's chest, stimulating with position changes and massage touch. Once feeding cues were visualized was brought to the breast. opened with big wide gape, however; did not suck, then would cry. Attempts were made to bring the baby upright to mother's chest for comfort, then back to the breast with feeding cues, then would have an appropriate mouth and either hold the breast in the mouth or cry. 1411- 1416 Blood sugar resulted in 64mg/dl. Mother was encouraged to call for assistance if she is unable to wake or latch effectively to breastfeed without pain. RN's name was written on the board with instructions to use the call light. Reported to the Primary RN.
[2022-11-10 20:30] VITALS: BP 130/81; PULSE 113; RESP 16; TEMP 37.3
[2022-11-11] MEDS: traMADol HCL (*CRX) 50 MG TABLET PO ×4 (03:15→23:30)
[2022-11-11] MEDS: IBUPROFEN 600 MG TABLET PO ×4 (03:15→23:30)
--- NOTE | 2022-11-11 05:38 | PM.OBPNVD ---
OB - PN: Subj Subjective Date/time seen: 11/11/22 05:38 Patient comments: no complaints and pain well controlled baby status: doing well and nursing well OB - PN: Obj Data Labs 11/10/22 03:28 OB - PN A/P Plan day: 2 Plan: routine care Time Spent With Patient Time: Total time spent is greater than 50% in coordination of care (as documented) at patient's floor/unit and/or counseling patient: Time with patient: less than 15 minutes Exam Const: General: cooperative, healthy appearing and comfortable Orientation/consciousness: oriented to person, oriented to place and oriented to time Resp: Effort & Inspection: normal respiratory effort Cardio: Rate: regular rate Rhythm: regular rhythm Heart sounds: S1 normal heart sound present and S2 normal heart sound present GI: Inspection: normal to inspection and incision (cdi)
[2022-11-11 07:40] VITALS: BP 136/87; PULSE 99; RESP 16; TEMP 36.8; O2SAT 99
[2022-11-11] MEDS: DOCUSATE SODIUM 100 MG CAPSULE PO ×2 (10:10→16:13)
[2022-11-11] MEDS: MULTIVIT/MIN/PREN/FOL AC/IRON TABLET 1 TAB PO (10:10)
--- NOTE | 2022-11-11 16:56 | PC.NURSE ---
Primary RN reported this morning that mother was initiated on the feeding plan of per Dr. Gordillo's order.
--- NOTE | 2022-11-11 17:05 | PC.NURSE ---
[id number] Purposefully rounded to assess needs. Mother had been attempting to place at the breast and stopped when RN entered the room. Mother states she attempts to latch, has pumped out some breast milk (syringes at bedside with some first milk) and supplements as needed with formula. Mother is content with fed is best . Encouraged mother to call for assistance with syringe feeding her . Reported to the Primary RN.
[2022-11-11 18:20] VITALS: BP 130/92; PULSE 100; RESP 16; TEMP 36.6
[2022-11-12] MEDS: traMADol HCL (*CRX) 50 MG TABLET PO ×2 (05:30→12:36)
[2022-11-12] MEDS: IBUPROFEN 600 MG TABLET PO ×2 (05:30→12:35)
--- NOTE | 2022-11-12 07:29 | PM.OBPNVD ---
OB - PN: Subj Subjective Date/time seen: 11/12/22 07:29 Patient comments: no complaints and pain well controlled baby status: doing well and nursing well OB - PN: Obj Data Labs 11/10/22 03:28 OB - PN A/P Plan day: 2 Plan: routine care, discharge home and follow up 6 weeks Time Spent With Patient Time: Total time spent is greater than 50% in coordination of care (as documented) at patient's floor/unit and/or counseling patient: Time with patient: less than 15 minutes Exam Const: General: cooperative, healthy appearing and comfortable Nutritional Appearance: average body habitus Orientation/consciousness: oriented to person, oriented to place and oriented to time HENMT: Head: normal to inspection Resp: Effort & Inspection: normal respiratory effort Cardio: Rate: regular rate Rhythm: regular rhythm Heart sounds: S1 normal heart sound present and S2 normal heart sound present GI: Inspection: normal to inspection
[2022-11-12] MEDS: MULTIVIT/MIN/PREN/FOL AC/IRON TABLET 1 TAB PO (07:59)
[2022-11-12] MEDS: DOCUSATE SODIUM 100 MG CAPSULE PO (08:00)
[2022-11-12 08:30] VITALS: BP 140/88; PULSE 106; RESP 20; TEMP 36.8; O2SAT 98
--- NOTE | 2022-11-12 10:08 | PC.NURSE ---
Patient viewed the discharge video Mother & Baby Care, The First Two Weeks online. Patient was given the opportunity and encouraged to ask questions. Patient verbalized understanding of information shared and has been given the mother/baby guide for home reference.
[2022-11-12] MEDS: MEASLES,MUMPS,RUBELLA VACCINE 0.5 ML VIAL SUB-Q (12:36)
[2022-11-13 11:34] VITALS: BP 145/92; PULSE 90; RESP 20; TEMP 36.7; O2SAT 97
== END 2022-11-12 13:11 | disposition home or self-care (01) | DRG 788 ==
LOC: ANHLDR 10:04 → ANHOB2 14:57
PROVIDERS: Admitting Provider Obstetrics & Gynecology; PCP Family Medicine; Visit Provider Obstetrics & Gynecology
PROC: 10D00Z1 Extraction of Products of Conception, Low, Open Approach (ICD-10-PCS; CPT 59514; principal; 2022-11-09 12:00)
DX: O32.1XX0 Maternal care for breech presentation, not applicable or unspecified (principal); O13.4 Gestational [pregnancy-induced] hypertension without significant proteinuria, complicating childbirth; Z37.0 Single live birth; Z3A.38 38 weeks gestation of pregnancy; O99.52 Diseases of the respiratory system complicating childbirth; J45.909 Unspecified asthma, uncomplicated
CPT/HCPCS: 36415; 85025; 90710; A9270; J1885; J2274; J2405; J2590; J7120

== ENCOUNTER 2024-01-03 14:51 | Outpatient (CLI) | payer BC, SELFPAY ==
[2024-01-03 15:11] LABS: Hematocrit 36.5 % (37.0-47.0); Hemoglobin 12.1 g/dL (12.0-15.0); Mean Corpuscular HGB Conc 33.2 g/dl (32-36); Mean Corpuscular Hemoglobin 28.9 pg (26-34); Mean Corpuscular Volume 87.1 fl (80-100); Mean Platelet Volume 10.6 fl (7.4-10.4); Platelet Count Result 265 k/mm3 (150-375); Red Blood Count 4.19 M/mm3 (4.2-5.4); Red Cell Distribution Width 14.1 % (11.5-14.5); White Blood Count 15.3 K/mm3 (4.5-10.0)
== END 2024-01-03 14:52 | disposition home or self-care (01) ==
LOC: ANHLAB 14:53
PROVIDERS: PCP Family Medicine; Visit Provider Obstetrics & Gynecology
DX: Z01.818 Encounter for other preprocedural examination (principal)
CPT/HCPCS: 36415; 85027; 86592; 86850; 86900; 86901

== ENCOUNTER 2024-01-05 04:49 | Inpatient (IN) | payer BC, SELFPAY ==
--- NOTE | 2024-01-03 07:16 | PM.IMHP ---
H&P: HPI History of Present Illness Date/Time: 01/03/24 07:16 Chief Complaint: Term with previous section Narrative: 38-year-old multiparous patient admitted at term for repeat section. She declined attempted . Her has been relatively unremarkable. She has had some mildly elevated blood pressures toward the end of PMFSH Past Medical History Medical History Abnormal colonoscopy Anxiety Asthma Asthma BMI 40.0-44.9, adult Depression Depression Failed tendon repair Obesity PUD (peptic ulcer disease) UTI (urinary tract infection) Viral exanthemata Surgical History Surgical History H/O dilation and curettage History of History of surgery on right wrist first dorsal compartment release History of tonsillectomy Family History Family History Mother Anxiety Arthritis Depression Irritable bowel Sibling Asthma Chronic pain Thyroid disease Father Diabetes mellitus Grandparent Shingles Social History Social History Smoking status: Former smoker Tobacco type: cigarettes Second hand tobacco smoke exposure: Yes Smoking end date: 01/08/19 Alcohol intake: former Substance use: never Other substance usage details: Patient uses marijuana approx 1 x mo. Lack of Transportation: No Lack of Food: Never True Current Housing: I Have Housing Concerned About Future Housing: No Difficulty Paying Gas/Electric Bills: No Difficulty Paying for Meds: No Currently Unemployed: No Education: Associate Degree Difficulty w/ Childcare or Family Care: No Living arrangements: with family Spiritual care concerns: No Meds Home Medications and Allergies Home Medications Medication Instructions Recorded Confirmed Type albuterol sulfate 90 mcg/actuation 1 inh inhalation Q4H PRN 09/03/20 12/14/23 History aerosol inhaler Bronchospasm vitamin#30 30 mg iron-10 1 cap PO DAILY 06/29/22 12/14/23 History mg iron-folic acid 1 mg-omg3 capsule duloxetine 30 mg capsule,delayed 30 mg PO DAILY 12/14/23 12/14/23 History release labetalol 100 mg tablet 200 mg PO BID 12/14/23 12/14/23 History metoclopramide HCl 10 mg tablet 10 mg PO Q6H PRN Nausea 12/14/23 12/14/23 History (Reglan) Allergies Allergy/AdvReac Type Severity Reaction Status Date / Time codeine Allergy Severe Dyspnea / Verified 12/14/23 14:31 SOB/itching Exam Const: General: cooperative, healthy appearing and comfortable Nutritional Appearance: average body habitus Orientation/consciousness: oriented to person, oriented to place and oriented to time HENMT: Head: normal to inspection Resp: Effort & Inspection: normal respiratory effort Cardio: Rate: regular rate Rhythm: regular rhythm Heart sounds: S1 normal heart sound present and S2 normal heart sound present GI: Inspection: normal to inspection ( gravid soft uterus) : External Female Exam: normal external appearance Speculum Exam - Vagina: normal appearance of the vagina Assessment and Plan Assessment and plan (1) Term : Code(s): Z34.90 - Encounter for supervision of normal , unspecified, unspecified trimester Status: Acute Assessment and Plan: proceed with repeat low-transverse section
[2024-01-05] VITALS (63 sets, daily range): BP systolic 72–170; BP diastolic 38–113; PULSE 62–95; RESP 15–20; TEMP 36.3–36.8; O2SAT 95–100; BMI 44.5
[2024-01-05] MEDS: ACETAMINOPHEN 500 MG TABLET 1000 MG PO (05:38)
[2024-01-05] MEDS: LACTATED RINGERS 1,000 ML 999 ML IV CONT ×2 (05:42→06:23)
--- NOTE | 2024-01-05 06:04 | WPDHPUPDATE1 ---
History and Physical Update Update Date/Time: 01/05/24 06:04 History and Physical has been reviewed, including an updated exam of the patient. There are NO changes in the patient's condition. Risks, benefits, and alternatives have been discussed and questions answered. Patient agrees to proceed with procedure.
[2024-01-05] MEDS: FAMOTIDINE 20 MG/2 ML VIAL IV PUSH (06:24)
[2024-01-05] MEDS: ONDANSETRON INJ 4 MG/2 ML VIAL IV PUSH (06:24)
--- NOTE | 2024-01-05 06:25 | LDADM ---
This patient, Yoly Santacruz, was admitted to Labor/Delivery/Recovery 120 on 01/05/24 at 04:49. Plans for labor, pain management and were discussed with patient. Patient/family oriented to hospital policies and general routines including ID bracelet, bed and alarms, visiting hours, pain management, procedures, bathroom and other care routines, personal items, smoking policy, room service/diet and guest tray routines, infant security routines, and visiting hours. Patient/Family are encouraged to report perceived risks to care and to ask questions if they do not understand what they are told or what they should do. See OBIX for further documentation.
[2024-01-05 06:33] LABS: HIV 1/2 Ab P24 Ag Result Negative (Negative)
[2024-01-05] MEDS: ceFAZolin 2 GM/D5W 50 ML 2 GM/50 ML BAG IVPB (06:48)
--- NOTE | 2024-01-05 07:29 | W.PM.OBCSD ---
OB - Delivery Note Procedure Delivery date: 01/05/24 Pre-op diagnosis: Previous Delivery and Other Post-op Diagnosis: Same Induction method: None Delivery monitor: External FHT Prior to decision for section, ACOG/SMFM labor guidelines were considered and discussed with the patient and staff. Decision made to proceed with the section.: Yes Procedure Performed: Repeat Surgeon: Ulysses Godoy MD Anesthesia type: Spinal Description of Procedure/Findings: Patient is prepped draped normal sterile fashion placed in the supine position. Under excellent spinal anesthetic the abdomen was entered in Pfannenstiel fashion progressive layers of fascia. Fascia incised midline cured upward outward fashion bilaterally. Underlying muscles sharply dissected. Parietal peritoneum by [place] clamps and by sharp dissection. This was carried superiorly and inferiorly down the bladder. A bladder blade placed. A bladder flap formed. Bladder blade returned. A low-transverse incision made the head delivered MYCHAL position. Nuchal cord checked noted loose x1 relieved around the occiput. Anterior posterior shoulder delivered spontaneously. Cord clamped x2 and cut. placed in warmer given with an excellent cry. The true knot was noted. Placenta delivered intact manually after removing blood. The uterus was delivered from the abdomen wrapped in moist towel. After assuring no membranes or debris remained in the uterus, the uterus was closed continuous running locking 0 Vicryl from lateral edge to lateral edge. This was repeated with a 2nd imbricating running locking 0 Vicryl edge to lateral edge. Hemostasis was assured. Ovaries and tubes appeared within normal limits in the uterus returned to the abdomen. Hysterotomy incision inspected 1 last time noted be hemostatic. The laps removed and accounted for. Fascia closed with continuous running 0 Vicryl from lateral edge to lateral edge. Irrigation subcutaneous layer and the skin closed with 4 Monocryl. QBL was 205cc. All sponge, needle, instrument counts were correct were no immediate complications Estimated Blood Loss: 205 Drains: No Packing: No Pathology: None sent Complications: No immediate complications Condition: Stable Disposition: Floor Baby Date of : 01/05/24 Time of : 07:15 Weeks of gestation at delivery: 39 Infant gender: Male Weight (pounds): 7 Weight (ounces): 2 presentation: vertex position: Right Occiput Anterior Placenta delivery description: Spontaneous Cord Vessel Description: 3 Vessels, Nuchal Cord and Loose score one minute: 8 score five minutes: 9
--- NOTE | 2024-01-05 07:32 | PM.DS ---
DS: Admitting Diagnosis Discharge Date 01/07/2024 Admitting Diagnosis term / chronic hypertension DS: Discharge Diagnosis Discharge Diagnosis (1) Prev O-eppwqdgm-wtlcelr: Code(s): O34.219 - Maternal care for unspecified type scar from previous delivery Status: Acute (2) Term : Code(s): Z34.90 - Encounter for supervision of normal , unspecified, unspecified trimester Status: Acute (3) Chronic hypertension: Code(s): I10 - Essential (primary) hypertension Status: Acute DS: Summary Hospital Course Reason for hospitalization: patient was admitted for repeat section on 01/05/2024. She underwent an unremarkable section. Hospital Course: Patient's hospital course of work. She remained afebrile. She was up, voiding without difficulty, eating regular diet, ambulating, and generally without complaints. Time Spent with Patient Time attestation: Total time spent providing and/or coordinating discharge services: Exam Const: General: cooperative, healthy appearing and comfortable Nutritional Appearance: average body habitus Orientation/consciousness: oriented to person, oriented to place and oriented to time Resp: Effort & Inspection: normal respiratory effort Cardio: Rate: regular rate Rhythm: regular rhythm Heart sounds: S1 normal heart sound present and S2 normal heart sound present GI: Inspection: normal to inspection and incision ( Wound is clean dry and intact) DS: Data Data Completed and Pending Labs on day of discharge: Labs from last 24 hours 01/05/24 01/05/24 05:16 05:15 RPR Pending HIV 1&2 Ab/P24 Ag 4thGn Negative Discharge Plan Discharge Attending physician on discharge: Ulysses Tomas Consulting providers: Seth Carrion; Juan J Sanders Discharging Clinician: Ulysses Tomas Patient Disposition: Home, Self-Care Activity: may shower, no straining, may drive after 2 weeks and pelvic rest Diet: regular Wound Care Instructions: incision open to air Discharge Instructions: Call or return if temperature above 100.4? F, increased abdominal pain, increased vaginal bleeding or any new problems. Education: Mom and Baby Guide Given to: Mother Follow-Up: Call your delivering provider's office for an appointment to be seen in: 4 Weeks Mom and baby should come to the [facility] for the follow-up appointment. Appointment Date/Time: January 09, 2024 at 11:00 am What to expect at your follow-up visit: Call [phone] if you are unable to keep your appointment time. BREAST CARE: * Wear a snug supportive bra. * For engorgement discomfort: Breast Feeding: * Apply warm moist washcloths * Express milk as needed to relieve engorgement * Wear loose clothing Bottle Feeding: * May apply ice packs * For sore nipples: * Identify correct latch-on * Apply warm moist washcloths before and after nursing * Air dry nipples after nursing * May apply Lansinoh cream to nipples ABDOMINAL INCISION: (if applicable) * Allow incision to air dry * Do NOT use lotions for powders on your incision * When showering, allow soap and water to run over the incision, but do not wash incision EPISIOTOMY/PERINEAL CARE: * Until bleeding stops, use your emeka bottle after urinating * Change your pad frequently throughout the day * No tub baths until seen by your physician - You may shower ACTIVITY: * Rest as much as possible. * Do not exercise or lift anything heavier than your baby (such as laundry or other children.) * Avoid stairs or driving as much as possible. * Do not put anything into the vagina. No douching, tampons, or sexual activity until seen by physician. NOTIFY PHYSICIAN IF YOU HAVE ANY QUESTIONS OR IF ANY OF THE FOLLOWING SYMPTOMS OCCUR: * If your episio
[2024-01-05] MEDS: OXYTOCIN 30 UNITS/NS 500 ML 30 UNITS/500 ML BAG 125 UNITS IV CONT (07:45)
--- NOTE | 2024-01-05 10:15 | PC.NURSE ---
Consulted with patient to assess needs related to . Encouraged understanding the benefits of skin to skin, responding to feeding cues, frequencies of feeding 8-12 times in 24 hours (approximately 2-3 hours), duration of feedings, intake/output feeding sheet and signs of adequate intake encouraging swallowing at the breast. Reviewed positioning and alignment, supporting breast, off-centered (asymmetrical latch) and leading with the chin with big, open, wide gape. latched optimally to the [left] breast in [football] position. Education given to the mother of how to visualize the suckling (with good rocking jaw motion) swallows (dropping of the lower jaw). The was [able] to maintain latch without discomfort to mother. Nipple care reviewed with optimal latch, good positioning and using clean hands when touching her breast. Mother was not able to breastfeed her 14 month old but did pump for 4 months with a good milk supply. Mother voiced understanding of the education shared, to call for assistance if the infant does not latch or if there is discomfort with . Reported to the Primary RN.
[2024-01-05] MEDS: ACETAMINOPHEN 325 MG TABLET 650 MG PO ×3 (10:26→22:56)
[2024-01-05] MEDS: KETOROLAC 15 MG/ML VIAL (*BKC) IV PUSH ×3 (10:27→22:56)
[2024-01-05] MEDS: SIMETHICONE 80 MG TAB.CHEW PO ×3 (10:27→16:45)
[2024-01-05] MEDS: DOCUSATE SODIUM 100 MG CAPSULE PO ×2 (10:27→16:45)
--- NOTE | 2024-01-05 10:56 | WPDANESEPPF ---
Anes - Initial Pre Proc Eval Procedure: Operation Date: 01/05/24 07:30 Proposed Procedures p Repeat Section - Ulysses Godoy MD Date/Time: 01/05/24 10:56 Surgeon: Ulysses Godoy MD Pre Op Diagnosis: C/S Patient Data Age: 38 Gender: F Height: 1.57 m Weight: 110.5 kg Last Vital Signs Temp 36.5 C 01/05/24 07:37 Pulse 84 01/05/24 09:45 Resp 18 01/05/24 09:37 BP 116/70 01/05/24 09:45 Pulse Ox 98 01/05/24 09:44 O2 Del Method Room Air 01/05/24 07:37 Allergies Allergy/AdvReac Type Severity Reaction Status Date / Time codeine Allergy Severe Dyspnea / Verified 12/14/23 14:31 SOB/itching Home Medications Medication Instructions Recorded Confirmed Type albuterol sulfate 90 mcg/actuation 1 inh inhalation Q4H PRN 09/03/20 01/05/24 History aerosol inhaler Bronchospasm vitamin#30 30 mg iron-10 1 cap PO DAILY 06/29/22 12/14/23 History mg iron-folic acid 1 mg-omg3 capsule duloxetine 30 mg capsule,delayed 30 mg PO DAILY 12/14/23 12/14/23 History release labetalol 100 mg tablet 200 mg PO BID 12/14/23 12/14/23 History metoclopramide HCl 10 mg tablet 10 mg PO Q6H PRN Nausea 12/14/23 01/05/24 History (Reglan) tramadol 50 mg tablet 50 mg PO Q4H PRN pain #20 tabs 01/05/24 Rx Laboratory Tests 01/05/24 01/05/24 05:15 05:16 RPR Pending HIV 1&2 Ab/P24 Ag 4thGn Negative (Negative) Patient hx anesthesia problems: none Family hx anesthesia problems: none Results Review: All pre-operative results and documents have been reviewed as part of the pre-operative evaluation. [facility] Past Medical History Medical History (Updated 01/05/24 @ 10:56 by Seth Carrion DO) Abnormal colonoscopy Anxiety Asthma Asthma BMI 40.0-44.9, adult Depression Depression Failed tendon repair GDM (gestational diabetes mellitus) Obesity PUD (peptic ulcer disease) UTI (urinary tract infection) Viral exanthemata Surgical History Surgical History (Updated 01/05/24 @ 06:14 by Ulysses Godoy MD) H/O dilation and curettage History of History of surgery on right wrist first dorsal compartment release History of tonsillectomy Family History Family History Mother Anxiety Arthritis Depression Irritable bowel Sibling Asthma Chronic pain Thyroid disease Father Diabetes mellitus Grandparent Shingles Social History Social History Smoking status: Former smoker Tobacco type: cigarettes Second hand tobacco smoke exposure: No Smoking end date: 01/08/19 Alcohol intake: former Substance use: never Other substance usage details: Patient uses marijuana approx 1 x mo. Lack of Transportation: No Lack of Food: Never True Current Housing: I Have Housing Concerned About Future Housing: No Difficulty Paying Gas/Electric Bills: No Difficulty Paying for Meds: No Currently Unemployed: No Education: Associate Degree Difficulty w/ Childcare or Family Care: No Living arrangements: with family Spiritual care concerns: No Anes - Eval Final PreProcedure Day of Procedure 01/05/24 10:56 Patient weight: obese Heart: regular rate and rhythm Lungs: clear to auscultation and normal air movement Airway: Mallampati scale class II Neurological: alert and oriented Last oral intake: >/= 8 hours ASA classification: III Emergent: no Anesthetic plan: proceed Anesthesia type and monitoring: regional spinal and standard monitoring Results Review: All pre-operative results and documents have been reviewed as part of the pre-operative evaluation. Informed Consent: The patient's anesthetic plan and its attendant risks and benefits were discussed with the patient/family/POA. Questions were solicited and answers provided to the satisfaction of the patient/family/POA.
[2024-01-05] MEDS: DEXTROSE 5%/0.45% SOD CHL 1,000 ML 125 ML IV CONT (11:31)
--- NOTE | 2024-01-05 13:30 | PC.NURSE ---
Attempted feeding with mother. Baby was sleepy and not giving much effort to latch. Mother brought a nipple shield from home. Educated mother on applying, cleaning, and risks associated with use of the nipple shield. Nipple shield was applied and would hold the shield in his mouth and give an occasional suckle with stimulation, but did not nurse consistently. Instructed mother to take a break and try again in 1-2 hours or if shows feeding cues before then. Infant is on blood sugars and is maintaining them in an appropriate level at this time. Mother verbalized understanding of education shared and will call for assistance with feeding as needed. Reported to primary RN.
[2024-01-05 13:46] LABS: Rapid Plasma Reagin Non-Reactive (NonReactive)
[2024-01-05] MEDS: DULoxetine HCL 30 MG CAPSULE.DR PO (21:31)
[2024-01-06 00:14] VITALS: BP 104/61; PULSE 81; RESP 18; TEMP 36.8; O2SAT 98
[2024-01-06] MEDS: ACETAMINOPHEN 325 MG TABLET 650 MG PO ×3 (05:33→20:53)
[2024-01-06] MEDS: KETOROLAC 15 MG/ML VIAL (*BKC) IV PUSH (05:33)
[2024-01-06] MEDS: LIDOCAINE 5% PATCH 1 PATCH TRANSDERM (05:40)
[2024-01-06 06:03] LABS: Basophils Percent Auto 0.3 % (0.2-1.2); Eosinophils Absolute Auto 0.2 K/mm3 (0-0.3); Eosinophils Percent Auto 1.5 % (0-4.4); Hematocrit 33.6 % (37.0-47.0); Hemoglobin 11.1 g/dL (12.0-15.0); Immature Granulocyte Absolute 0.12 K/mm3 (0.00-0.031); Immature Granulocyte Percent A 0.9 % (0-0.5); Lymphocytes Percent Auto 16.8 % (18.3-44.2); Mean Corpuscular Volume 87.7 fl (80-100); Mean Platelet Volume 10.9 fl (7.4-10.4); Monocytes Percent Auto 7.3 % (2.6-8.5); Neutrophils Absolute Auto 9.6 K/mm3 (1.3-6.7); Neutrophils Percent Auto 73.2 % (45.5-73.1); Platelet Count Result 239 k/mm3 (150-375); Red Blood Count 3.83 M/mm3 (4.2-5.4); Red Cell Distribution Width 14.1 % (11.5-14.5); White Blood Count 13.1 K/mm3 (4.5-10.0)
--- NOTE | 2024-01-06 06:34 | PM.OBPNVD ---
OB - PN: Subj Subjective Date/time seen: 01/06/24 06:34 Patient comments: no complaints and pain well controlled baby status: doing well OB - PN: Obj Data Labs 01/06/24 05:17 Labs: Laboratory Results - last 24 hr 01/05/24 01/06/24 05:15 05:17 WBC 13.1 H RBC 3.83 L Hgb 11.1 L Hct 33.6 L MCV 87.7 MCH 29.0 MCHC 33.0 RDW 14.1 Plt Count 239 MPV 10.9 H Immature Gran % (Auto) 0.9 H Neut % (Auto) 73.2 H Lymph % (Auto) 16.8 L [place] % (Auto) 7.3 Eos % (Auto) 1.5 Baso % (Auto) 0.3 Lymph # (Auto) 2.20 [place] # (Auto) 1.0 H Eos # (Auto) 0.2 Baso # (Auto) 0.0 Abs Immat Gran (auto) 0.12 H Absolute Neuts (auto) 9.6 H Absolute Nucleated RBC 0.000 Nucleated RBC % 0.0 RPR Non-reactive OB - PN A/P Plan day: 1 Plan: routine care Time Spent With Patient Time: Total time spent is greater than 50% in coordination of care (as documented) at patient's floor/unit and/or counseling patient: Time with patient: less than 15 minutes Exam Const: General: cooperative, healthy appearing and comfortable Orientation/consciousness: oriented to person, oriented to place and oriented to time HENMT: Head: normal to inspection Resp: Effort & Inspection: normal respiratory effort Cardio: Rate: regular rate Rhythm: regular rhythm Heart sounds: S1 normal heart sound present and S2 normal heart sound present GI: Inspection: normal to inspection and incision (cdi)
--- NOTE | 2024-01-06 07:57 | WPDANLDPN2 ---
Anes-Prog Note L&D Date/Time: 01/06/24 07:57 Comfortable throughout: section Neuraxial method: spinal Epidural/Spinal procedure site: clean & non-tender Neuro status: Neuro function grossly intact. Cardiovascular status: normal Respiratory status: normal Airway patency: baseline Mental status: baseline Post-Op hydration status: normal Vital Signs: Last Vital Signs Temp 36.8 C 01/06/24 00:14 Pulse 81 01/06/24 00:14 Resp 18 01/06/24 00:14 BP 104/61 01/06/24 00:14 Pulse Ox 98 01/06/24 00:14 O2 Del Method Room Air 01/06/24 00:14 Pain score (VAS): 4/10 I/O: Intake & Output 01/05/24 01/05/24 01/06/24 15:59 23:59 07:59 Intake Total 990 2100 Output Total 8001 303 6252 Balance -685 1125 -1000 Post-procedural complaints: pruritis mild, no treatment Patient feedback: Patient satisfied with anesthetic care.
--- NOTE | 2024-01-06 07:58 | WPDANLDNPN2 ---
Anes-Prog Note L&D-Neuraxial Date/Time: 01/06/24 07:58 Neuraxial medications: intrathecal PF morphine Opiod-related complaints: pruritis mild, no treatment Patient feedback: Patient satisfied with post-operative pain management.
[2024-01-06 08:05] VITALS: BP 116/64; PULSE 96; RESP 18; TEMP 36.3; O2SAT 99
[2024-01-06] MEDS: SIMETHICONE 80 MG TAB.CHEW PO ×3 (09:35→20:52)
[2024-01-06] MEDS: MULTIVIT/MIN/PREN/FOL AC/IRON TABLET 1 TAB PO (09:35)
[2024-01-06] MEDS: DOCUSATE SODIUM 100 MG CAPSULE PO ×2 (09:35→20:52)
--- NOTE | 2024-01-06 10:15 | PC.NURSE ---
Introductions were made, then consulted with patient to assess needs related to . Mother led the conversation with her?plans to feed?her infant and the?experience so far. Reviewed changing positions to encourage wakefulness, how to watch for early feeding cues, responsive feeding, feeding on demand (aiming for 8-12 times in 24 hours, about every 2-3 hours), milk production, building/maintaining a milk supply, duration of feeding, signs of adequate intake/output and how to record on the feeding sheet. Mother works well with her infant with encouragement and education. Mother voiced understanding of skin to skin, responsive feedings, to call if does not latch, or if there is discomfort with . Mother is currently attempting at breast with the nipple shield, and then pumping and supplementing. Infant had some blood sugar issues which have since resolved. Mother is happy with the plan in place and states that she will continue to pump and bottle feed instead of putting baby to breast if continues to struggle with . He was circumcised this morning and is sleepy. He will latch to the shield but will not suck more than once or twice, which is what he did through the night also. Parents voiced understanding of information, demonstrated learning and will call if there is a request for assistance. Reported to the Primary RN.
[2024-01-06] MEDS: IBUPROFEN 600 MG TABLET PO ×2 (15:01→20:53)
[2024-01-06] MEDS: traMADol HCL (*CRX) 50 MG TABLET PO (16:00)
[2024-01-06 20:00] VITALS: BP 136/68; PULSE 104; RESP 18; TEMP 36.7; O2SAT 97
[2024-01-06] MEDS: DULoxetine HCL 30 MG CAPSULE.DR PO (20:53)
[2024-01-07] VITALS: BP 121/63
--- NOTE | 2024-01-07 01:53 | P.PNOB_ITS ---
OB - PN: Subj Subjective Date/time seen: 01/07/24 01:53 Narrative: Pain OK. Tolerating diet. Would like to go home. OB - PN: Obj Data Labs 01/06/24 05:17 Labs: Laboratory Results - last 24 hr 01/06/24 05:17 WBC 13.1 H RBC 3.83 L Hgb 11.1 L Hct 33.6 L MCV 87.7 MCH 29.0 MCHC 33.0 RDW 14.1 Plt Count 239 MPV 10.9 H Immature Gran % (Auto) 0.9 H Neut % (Auto) 73.2 H Lymph % (Auto) 16.8 L Mcintosh % (Auto) 7.3 Eos % (Auto) 1.5 Baso % (Auto) 0.3 Lymph # (Auto) 2.20 Mcintosh # (Auto) 1.0 H Eos # (Auto) 0.2 Baso # (Auto) 0.0 Abs Immat Gran (auto) 0.12 H Absolute Neuts (auto) 9.6 H Absolute Nucleated RBC 0.000 Nucleated RBC % 0.0 OB - PN A/P Plan day: 2 Comments: A: POD#2, doing well. P: Home to f/u 4 weeks. Exam Narrative: AVSS ABD soft, nontender, fundus firm. Incision c/d/i. EXT nontender
[2024-01-07] MEDS: ACETAMINOPHEN 325 MG TABLET 650 MG PO ×2 (04:03→10:34)
[2024-01-07] MEDS: IBUPROFEN 600 MG TABLET PO ×2 (04:03→10:34)
[2024-01-07 08:35] VITALS: BP 125/68; PULSE 91; RESP 16; TEMP 36.4; O2SAT 99
[2024-01-07] MEDS: SIMETHICONE 80 MG TAB.CHEW PO (08:40)
[2024-01-07] MEDS: MULTIVIT/MIN/PREN/FOL AC/IRON TABLET 1 TAB PO (08:40)
[2024-01-07] MEDS: DOCUSATE SODIUM 100 MG CAPSULE PO (08:40)
--- NOTE | 2024-01-07 12:05 | PC.NURSE ---
Consulted with mother concerning needs and she shared her ability to independently latch infant optimally without pain. She was able to latch infant for two good feeds this morning without the nipple shield. Mother is feeling very good about their current feeding plan and supplementing until her milk comes in. Mother is feeding appropriately for growth of and understands stimulating to eat if needed. has had appropriate feedings in the last 24 hours meets the outcomes for weight, output, blood sugar and jaundice at this time. Reinforced understanding of milk production, transition of milk, signs of adequate intake, transition of stool, prevention/relief of engorgement, plugged ducts, mastitis, responsive watching for feeding cues, the different methods of stimulating infant to breastfeed 1-3 hours after the start of the last feeding, community resources, and when to call a provider using the resource of the feeding sheet along with the mom and baby guide. Mother voiced understanding of the information shared, is confident to continue effectively her infant at home, when to call for assistance, denies any additional assistance or education at this time. Reported to the Primary RN.
[2024-01-09 11:26] VITALS: BP 140/89; PULSE 87; RESP 18; TEMP 36.4; O2SAT 97
== END 2024-01-07 13:39 | disposition home or self-care (01) | DRG 787 ==
LOC: ANHLDR 06:06 → ANHOB2 01-07 12:32 → ANHLDR 01-09 12:09 → ANHOB2 01-09 12:09
PROVIDERS: Admitting Provider Obstetrics & Gynecology; PCP Family Medicine; Visit Provider Obstetrics & Gynecology
PROC: 10D00Z1 Extraction of Products of Conception, Low, Open Approach (ICD-10-PCS; CPT 59514; principal; 2024-01-05 07:30)
DX: O34.211 Maternal care for low transverse scar from previous cesarean delivery (principal); O10.92 Unspecified pre-existing hypertension complicating childbirth; Z37.0 Single live birth; Z3A.39 39 weeks gestation of pregnancy; O69.81X0 Labor and delivery complicated by cord around neck, without compression, not applicable or unspecified; O99.824 Streptococcus B carrier state complicating childbirth
CPT/HCPCS: 36415; 85025; 86592; 86703; A9270; G0432; J0690; J1885; J2274; J2371; J2405; J2590; J7120

== ENCOUNTER 2025-01-23 00:28 | Day surgery (SDC) | payer BC, SELFPAY ==
[2025-01-15 10:13] VITALS: BMI 33.5
--- NOTE | 2025-01-15 10:29 | PC.NURSE ---
Addendum entered by Haley Gusman RN 01/15/25 10:33: PATIENT INSTRUCTED TO BE NPO FOR 8 HOURS PRIOR TO PROCEDURE, NO FOOD AFTER MIDNIGHT. Original Note: Report to the Outpatient Waiting Room, entrance under the green pavilion located off [facility], at time _1115_ on date _01-23-25__. Planned Procedure Time: __1315_.? Time changes happen often and if your time is changed the preop area will call you the afternoon before. - You and your visitor will be asked to self-screen and do not enter if you have any COVID symptoms. Please call surgeon if you need to reschedule. - A mask is optional within the hospital at this time. Patients may have clear liquids (water, carbonated beverages, clear teas, apple juice) until 3 hours prior to surgery with a maximum of 20 ounces. - No food from midnight until time of surgery and no smoking, or chewing tobacco (or any form of nicotine). No chewing gum, candy or mints. - Infants may have breast milk until 4 hours before surgery, formula 6 hours prior to surgery. - Children will be allowed to drink immediately following surgery.? If applicable, please bring a bottle or sippy cup to assist with drinking. Juice, water, soda, and popsicles are readily available.? For infants on formula, please bring formula the day of surgery.? Pacifiers are allowed. Take only the following medications with a SIP of water on the morning of surgery: __xanax and duloxetine DO NOT STOP ANY OF YOUR OTHER PRESCRIPTION MEDICATIONS PRIOR TO SURGERY EXCEPT THE FOLLOWING Hold all vitamins and supplements for 3 days per anesthesiologist. Medications to discontinue per physician N/A Date to take last dose____N/A Please no make-up, nail ecuadorean, hairspray, perfume, deodorant, or body powder the day of surgery.? No jewelry (including any body piercings) or valuables the day of surgery, leave them at home.? Please take a shower or bath the night before, or the morning of, surgery with an antibacterial soap.? Wear comfortable, loose fitting clothing.? Children are encouraged to wear pajamas. - Jewelry must be removed prior to entering the operating room.? Rings and piercings that are not removed may be cut off. - The hospital will not accept responsibility for valuables.? - Please leave all valuables, including medications, at home the day of surgery. If you are going home after surgery, a licensed regional truck driver must drive you home.? - NO public transportation without another adult if you receive anesthesia. - We recommend that an adult stay with you for 24 hours following discharge. - We also recommend that you do not drive, make important decision, drink alcoholic beverages, or take any drugs that were not prescribed by your health care provider for at least 24 hours after your discharge time. For Pediatric surgeries, we recommend two adults accompany the child home. Follow any additional instructions given to you from your surgeon. Telephone instructions given to _PATIENT___and asked if any additional questions and then verbalized understanding. Patient advised to call surgeon office or pre surgery nurse liaison [phone] if any additional questions.
--- NOTE | 2025-01-23 07:01 | WPDHPUPDATE1 ---
History and Physical Update Update Date/Time: 01/23/25 07:01 Patient seen and examined in pre-operative holding area. No interval change in medical history or symptoms. Patient recalls previous discussion of benefits and alternatives to procedure. Continues to desire to proceed with left endoscopic possible open carpal tunnel release and right carpal tunnel steroid injection. Reviewed procedure, post-op expectations and risks including but not limited to bleeding, infection, injury to tendon/nerve/vessel, decreased hand function, stiffness, RSD, no change or worsening of symptoms. I discussed the possible use of assistants and their participation in the case. Patient stated understanding and signed the consent form wishing to proceed.
--- NOTE | 2025-01-23 07:04 | PM.HPGS ---
History of Present Illness History of Present Illness Chief complaint: bilateral carpal tunnel syndrome Narrative: Patient seen and examined in pre-operative holding area. No interval change in medical history or symptoms. Patient recalls previous discussion of benefits and alternatives to procedure. Continues to desire to proceed with left endoscopic possible open carpal tunnel release and right carpal tunnel steroid injection. Reviewed procedure, post-op expectations and risks including but not limited to bleeding, infection, injury to tendon/nerve/vessel, decreased hand function, stiffness, RSD, no change or worsening of symptoms. I discussed the possible use of assistants and their participation in the case. Patient stated understanding and signed the consent form wishing to proceed. Review of Systems Review of Systems: All systems reviewed & are unremarkable except as noted in HPI and below PMFSH Past Medical History Medical History GDM (gestational diabetes mellitus) BMI 40.0-44.9, adult Failed tendon repair Abnormal colonoscopy Depression UTI (urinary tract infection) Asthma Viral exanthemata Depression Anxiety PUD (peptic ulcer disease) Obesity Asthma Surgical History Surgical History History of surgery on right wrist first dorsal compartment release History of History of tonsillectomy H/O dilation and curettage Family History Family History Mother Anxiety Arthritis Depression Irritable bowel Sibling Asthma Chronic pain Thyroid disease Father Diabetes mellitus Grandparent Shingles Social History Social History Smoking status: Current every day smoker Tobacco type: e-cigarettes/vaping Second hand tobacco smoke exposure: No Smoking end date: 01/08/19 Additional smoking assessment comments: currently vaping with nicotine, no tobacco products Alcohol intake: former Drinks per week: 0 Substance use: never Substance use type: marijuana Other substance usage details: weekly Last use: 01-11-25 Lack of Transportation: No Lack of Food: Never True Current Housing: I Have Housing Concerned About Future Housing: No Difficulty Paying Gas/Electric Bills: No Difficulty Paying for Meds: No Currently Unemployed: No Education: Associate Degree Difficulty w/ Childcare or Family Care: No Living arrangements: with family Additional living arrangements comments: and children Spiritual care concerns: No Meds Home Medications and Allergies Home Medications ?Medication ?Instructions ?Recorded ?Confirmed ?Type albuterol sulfate 90 mcg/actuation 1 inh inhalation Q4H PRN 09/03/20 01/15/25 History aerosol inhaler Bronchospasm duloxetine 30 mg capsule,delayed 90 mg PO DAILY 06/12/24 01/15/25 History release alprazolam 0.25 mg tablet (Xanax) 0.25 mg PO BID PRN anxiety 01/15/25 01/15/25 History Allergies Allergy/AdvReac Type Severity Reaction Status Date / Time codeine Allergy Severe Dyspnea / Verified 01/23/25 12:22 SOB/itching Exam Narrative: unchanged Assessment and Plan Assessment and plan (1) Bilateral carpal tunnel syndrome: Code(s): G56.03 - Carpal tunnel syndrome, bilateral upper limbs Status: Acute Assessment and Plan: cont as above
--- NOTE | 2025-01-23 07:05 | W.PM.PROC2 ---
Procedure Note - Detailed Date of Procedure 01/23/25 Pre-op Diagnosis bilateral carpal tunnel syndrome Post-op Diagnosis Same Procedure Performed left endoscopic possible open carpal tunnel release and right carpal tunnel steroid injection Surgeon Silvano Fernandes MD [employer] Manager katia mg pa-c Anesthesia MAC Description of Procedure INFORMED CONSENT: The patient was seen and examined and marked in the pre-op area.? The patient signed the consent form. PROCEDURE IN DETAIL:The patient taken back to OR on the stretcher in supine position. Time out performed with anesthesia, surgeon and staff agreeing on patient's name site and surgery to be performed SCDs were placed on the lower extremities and inflated. A tourniquet was placed on {left} upper extremity and antibiotics given IV After anesthesia administered sedation I injected {5}cc 1%lido with epi and 0.5% marcaine plain at the operative site The?{left upper extremity}?was prepped and draped in sterile fashion the??{left upper extremity} was? exsanguinated with Esmarch bandage and tourniquet inflated to 250mmHg I made a transverse incision in the {left} volar distal wrist crease through skin and dermis with 15 blade scalpel.? Littler scissors spread down to antebrachial fascia. A small incision was made in antebrachial fascia allowing access to Carpal tunnel. I proceeded with sequential dilation staying in line with the ring finger and hugging the hook of the hamate.? I then used the synovial elevator to free any adhesions from the underside of the transverse carpal ligament. Next I was able to insert the Microaire endoscopic carpal tunnel device with direct visualization of the transverse fibers on the monitor and proceeded with complete segmental retrograde release of the ligament in its entirety.? I irrigated with normal saline and closed with 4-0 monocryl for dermis and subcuticular closure. A dressing of Dermabond, 4x4, becky, and a volar splint was applied for patient safety, security, and comfort and secured with an bethany bandage after the tourniquet was let down noting the hand was warm and well perfused. next I injected 0.3cc 1%lidocaine plain and 0.7cc Betamethasone 6mg/ml into the right carpal tunnel under sterile conditions. The patient was then awaken from anesthesia and transferred to the recovery room in stable condition.? Complications - none EBL- 0cc Disposition - home in stable condition Katia Mg PA-C was essential for positioning, retraction, closure and dressing placement [facility] Billing Surgery - Charge Forward: Surgery Billing ([id number] for katia)
[2025-01-23 12:23] VITALS: BP 133/91; PULSE 88; TEMP 37.2; O2SAT 98; BMI 34.0
[2025-01-23] MEDS: ACETAMINOPHEN 500 MG TABLET 1000 MG PO (12:30)
[2025-01-23] MEDS: LACTATED RINGERS 1,000 ML 30 ML IV CONT (13:00)
--- NOTE | 2025-01-23 13:34 | P.PNAN_ITS ---
Anes - Initial Pre Proc Eval Procedure: Operation Date: 01/23/25 13:15 Proposed Procedures p Left Endoscopic Carpal Tunnel Release, Possible Open, Right Carpal Tunnel Steroid Injection - Silvano Fernandes MD Date/Time: 01/23/25 13:34 Surgeon: Silvano Fernandes MD Pre Op Diagnosis: bilateral carpal tunnel syndrome Patient Data Age: 39 Gender: F Height: 1.57 m Weight: 84.3 kg Last Vital Signs Temp 37.2 C 01/23/25 12:23 Pulse 88 01/23/25 12:23 BP 133/91 H 01/23/25 12:23 Pulse Ox 98 01/23/25 12:23 O2 Del Method Room Air 01/23/25 12:23 Allergies Allergy/AdvReac Type Severity Reaction Status Date / Time codeine Allergy Severe Dyspnea / Verified 01/23/25 12:22 SOB/itching Home Medications ?Medication ?Instructions ?Recorded ?Confirmed ?Type albuterol sulfate 90 mcg/actuation 1 inh inhalation Q4H PRN 09/03/20 01/15/25 History aerosol inhaler Bronchospasm duloxetine 30 mg capsule,delayed 90 mg PO DAILY 06/12/24 01/15/25 History release alprazolam 0.25 mg tablet (Xanax) 0.25 mg PO BID PRN anxiety 01/15/25 01/15/25 History tramadol 50 mg tablet 50 mg PO Q6H PRN pain #12 tabs 01/23/25 Rx Patient hx anesthesia problems: none Family hx anesthesia problems: none Results Review: All pre-operative results and documents have been reviewed as part of the pre- operative evaluation. [facility] Past Medical History Medical History GDM (gestational diabetes mellitus) BMI 40.0-44.9, adult Failed tendon repair Abnormal colonoscopy Depression UTI (urinary tract infection) Asthma Viral exanthemata Depression Anxiety PUD (peptic ulcer disease) Obesity Asthma Surgical History Surgical History History of surgery on right wrist first dorsal compartment release History of History of tonsillectomy H/O dilation and curettage Family History Family History Mother Anxiety Arthritis Depression Irritable bowel Sibling Asthma Chronic pain Thyroid disease Father Diabetes mellitus Grandparent Shaina Social History Social History Smoking status: Current every day smoker Tobacco type: e-cigarettes/vaping Second hand tobacco smoke exposure: No Smoking end date: 01/08/19 Additional smoking assessment comments: currently vaping with nicotine, no tobacco products Alcohol intake: former Drinks per week: 0 Substance use: never Substance use type: marijuana Other substance usage details: weekly Last use: 01-11-25 Lack of Transportation: No Lack of Food: Never True Current Housing: I Have Housing Concerned About Future Housing: No Difficulty Paying Gas/Electric Bills: No Difficulty Paying for Meds: No Currently Unemployed: No Education: Associate Degree Difficulty w/ Childcare or Family Care: No Living arrangements: with family Additional living arrangements comments: and children Spiritual care concerns: No Anes - Eval Final PreProcedure Day of Procedure 01/23/25 13:34 Patient weight: obese Heart: regular rate and rhythm Lungs: decreased breath sounds Airway: Mallampati scale class II Neurological: alert and oriented Last oral intake: >/= 8 hours ASA classification: III Emergent: no Anesthetic plan: proceed Anesthesia type and monitoring: general GIVS and standard monitoring Results Review: All pre-operative results and documents have been reviewed as part of the pre- operative evaluation. Informed Consent: The patient's anesthetic plan and its attendant risks and benefits were discussed with the patient/family/POA. Questions were solicited and answers provided to the satisfaction of the patient/family/POA.
[2025-01-23] MEDS: ceFAZolin 2 GM in SODIUM CHLORIDE 0.9% IV 50 ML 100 ML IVPB (14:16)
[2025-01-23] MEDS: LIDOCAINE 1% LOCAL INJ 10 ML VIAL INFILTRATE (14:28)
[2025-01-23 14:43] VITALS: BP 105/58; PULSE 93; RESP 20; O2SAT 100
[2025-01-23 15:10] VITALS: BP 114/72; PULSE 82; RESP 18
[2025-01-23 15:35] VITALS: BP 122/78; PULSE 71; RESP 16
== END 2025-01-23 15:40 | disposition home or self-care (01) ==
PROVIDERS: PCP Family Medicine; Visit Provider Plastic Surgery
PROC: 01N54ZZ Release Median Nerve, Percutaneous Endoscopic Approach (ICD-10-PCS; CPT 29848; principal; 2025-01-23 13:15)
DX: G56.03 Carpal tunnel syndrome, bilateral upper limbs (principal); F32.A Depression, unspecified; J45.909 Unspecified asthma, uncomplicated; F41.9 Anxiety disorder, unspecified; F17.290 Nicotine dependence, other tobacco product, uncomplicated; F12.90 Cannabis use, unspecified, uncomplicated; E66.9 Obesity, unspecified; Z68.34 Body mass index [BMI] 34.0-34.9, adult; Z79.51 Long term (current) use of inhaled steroids; Z79.891 Long term (current) use of opiate analgesic; Z98.890 Other specified postprocedural states; Z87.11 Personal history of peptic ulcer disease
CPT/HCPCS: 29848; 20526; J0690; A9270; J1100; J2003; J2250; J2704; J3010; J7120

== ENCOUNTER 2025-02-14 02:10 | Day surgery (SDC) | payer BC, SELFPAY ==
[2024-11-13 09:11] VITALS: BMI 36.0
[2025-01-31 09:51] VITALS: BMI 32.6
[2025-02-14 07:06] VITALS: BP 109/65; PULSE 82; RESP 16; TEMP 36.3; O2SAT 96; BMI 32.1
[2025-02-14 07:11] LABS: BEDSIDEPREGUCG Negative (Negative)
[2025-02-14] MEDS: LACTATED RINGERS 1,000 ML 150 ML IV CONT (07:18)
--- NOTE | 2025-02-14 07:22 | P.PNAN_ITS ---
Anes - Initial Pre Proc Eval Procedure: Operation Date: 02/14/25 08:30 Proposed Procedures p Screening Colonoscopy - Jhonny Ledezma MD Date/Time: 02/14/25 07:22 Surgeon: Jhonny Ledezma MD Pre Op Diagnosis: Hx of polyps Patient Data Age: 39 Gender: F Height: 1.57 m Weight: 79.6 kg Last Vital Signs Temp 36.3 C L 02/14/25 07:06 Pulse 82 02/14/25 07:06 Resp 16 02/14/25 07:06 BP 109/65 02/14/25 07:06 Pulse Ox 96 02/14/25 07:06 O2 Del Method Room Air 02/14/25 07:06 Allergies Allergy/AdvReac Type Severity Reaction Status Date / Time codeine Allergy Severe Dyspnea / Verified 02/14/25 07:05 SOB/itching Home Medications ?Medication ?Instructions ?Recorded ?Confirmed ?Type albuterol sulfate 90 mcg/actuation 1 inh inhalation Q4 H PRN 09/03/20 01/15/25 History aerosol inhaler Bronchospasm duloxetine 30 mg capsule,delayed 90 mg PO DAILY 02/14/25 History release alprazolam 0.25 mg tablet (Xanax) 0.25 mg PO BID PRN a nxiety 01/15/25 01/31/25 History multivitamin 1 tablet PO DAILY 02/05/25 0 02/14/25 History Laboratory Tests 02/14/25 07:06 POC Urine HCG, Qual Negative (Negative) Patient hx anesthesia problems: none Family hx anesthesia problems: none Results Review: All pre-operative results and documents have been reviewed as part of the pre- operative evaluation. [facility] Past Medical History Medical History (Updated 02/14/25 @ 07:22 by Ulysses Villegas MD) GDM (gestational diabetes mellitus) Failed tendon repair Abnormal colonoscopy Depression UTI (urinary tract infection) Asthma Viral exanthemata Depression Anxiety PUD (peptic ulcer disease) Obesity Asthma Surgical History Surgical History History of surgery on right wrist first dorsal compartment release History of History of tonsillectomy H/O dilation and curettage Family History Family History Mother Anxiety Arthritis Depression Irritable bowel Sibling Asthma Chronic pain Thyroid disease Father Diabetes mellitus Grandparent Shaina Social History Social History Social History: Caffeine-coffee Smoking status: Current every day smoker Tobacco type: e-cigarettes/vaping Second hand tobacco smoke exposure: No Additional smoking assessment comments: currently vaping with nicotine, no tobacco products Alcohol intake: former Drinks per week: 0 Substance use: current Substance use type: marijuana Other substance usage details: weekly Last use: 01-11-25 Lack of Transportation: No Lack of Food: Never True Current Housing: I Have Housing Concerned About Future Housing: No Difficulty Paying Gas/Electric Bills: No Difficulty Paying for Meds: No Currently Unemployed: No Education: Associate Degree Difficulty w/ Childcare or Family Care: No Living arrangements: with family Additional living arrangements comments: and children Spiritual care concerns: No Anes - Eval Final PreProcedure Day of Procedure 02/14/25 07:22 Patient weight: obese Heart: regular rate and rhythm Lungs: clear to auscultation Airway: Mallampati scale class II Neurological: alert and oriented Last oral intake: >/= 8 hours ASA classification: III Emergent: no Anesthetic plan: proceed Anesthesia type and monitoring: general GIVS and standard monitoring Results Review: All pre-operative results and documents have been reviewed as part of the pre- operative evaluation. Informed Consent: The patient's anesthetic plan and its attendant risks and benefits were discussed with the patient/family/POA. Questions were solicited and answers provided to the satisfaction of the patient/family/POA.
--- NOTE | 2025-02-14 08:16 | PM.IMHP ---
H&P: HPI History of Present Illness Date/Time: 02/14/25 08:16 Chief Complaint: History of colon polyps Narrative: The patient has a history of colonic polyps, the last colonoscopy was 5 years ago. Review of Systems Review of Systems: All systems reviewed & are unremarkable except as noted in HPI and below PMFSH Past Medical History Medical History (Updated 02/14/25 @ 07:22 by Ulysses Villegas MD) GDM (gestational diabetes mellitus) Failed tendon repair Abnormal colonoscopy Depression UTI (urinary tract infection) Asthma Viral exanthemata Depression Anxiety PUD (peptic ulcer disease) Obesity Asthma Surgical History Surgical History History of surgery on right wrist first dorsal compartment release History of History of tonsillectomy H/O dilation and curettage Family History Family History Mother Anxiety Arthritis Depression Irritable bowel Sibling Asthma Chronic pain Thyroid disease Father Diabetes mellitus Grandparent Shingles Social History Social History Social History: Caffeine-coffee Smoking status: Current every day smoker Tobacco type: e-cigarettes/vaping Second hand tobacco smoke exposure: No Additional smoking assessment comments: currently vaping with nicotine, no tobacco products Alcohol intake: former Drinks per week: 0 Substance use: current Substance use type: marijuana Other substance usage details: weekly Last use: 01-11-25 Lack of Transportation: No Lack of Food: Never True Current Housing: I Have Housing Concerned About Future Housing: No Difficulty Paying Gas/Electric Bills: No Difficulty Paying for Meds: No Currently Unemployed: No Education: Associate Degree Difficulty w/ Childcare or Family Care: No Living arrangements: with family Additional living arrangements comments: and children Spiritual care concerns: No Meds Home Medications and Allergies Home Medications ?Medication ?Instructions ?Recorded ?Confirmed ?Type albuterol sulfate 90 mcg/actuation 1 inh inhalation Q4H PRN 09/03/20 01/15/25 History aerosol inhaler Bronchospasm duloxetine 30 mg capsule,delayed 90 mg PO DAILY 06/12/24 02/14/25 History release alprazolam 0.25 mg tablet (Xanax) 0.25 mg PO BID PRN anxiety 01/15/25 01/31/25 History multivitamin 1 tablet PO DAILY 02/05/25 02/14/25 History Allergies Allergy/AdvReac Type Severity Reaction Status Date / Time codeine Allergy Severe Dyspnea / Verified 02/14/25 07:05 SOB/itching Vital Signs Vital Signs - 24 hr 02/14/25 07:06 Temperature 97.3 F L Pulse Rate 82 Respiratory Rate 16 Blood Pressure 109/65 Pulse Oximetry 96 Oxygen Delivery Room Air Exam Const: General: cooperative and healthy appearing Resp: Effort & Inspection: normal respiratory effort and able to speak in complete sentences Auscultation: clear to auscultation bilaterally Cardio: Rate: regular rate Rhythm: regular rhythm GI: Inspection: normal to inspection GI Palp: No No hepatosplenomegaly present Auscultation: normal bowel sounds Rectal Exam: deferred Skin: General skin exam: normal color Psych: Appearance: grossly normal Mental Status: mental status grossly normal Assessment and Plan Assessment and plan (1) Hx of colonic polyps: Code(s): Z86.0100 - Personal history of colon polyps, unspecified Status: Acute Assessment and Plan: The patient is deemed a good candidate for the procedure. Consent signed. Will proceed.
[2025-02-14 08:40] VITALS: BP 102/72; PULSE 80; RESP 19; O2SAT 100
[2025-02-14 08:50] VITALS: BP 115/69; PULSE 78; RESP 19; O2SAT 100
[2025-02-14 09:00] VITALS: BP 122/63; PULSE 76; RESP 20; O2SAT 100
== END 2025-02-14 09:06 | disposition home or self-care (01) ==
PROVIDERS: Anesthesiology; PCP Family Medicine; Referring Provider Physician Assistant Medical; Visit Provider Internal Medicine Gastroenterology
PROC: 0DJD8ZZ Inspection of Lower Intestinal Tract, Via Natural or Artificial Opening Endoscopic (ICD-10-PCS; CPT 45378; principal; 2025-02-14 08:30)
DX: Z12.11 Encounter for screening for malignant neoplasm of colon (principal); J45.909 Unspecified asthma, uncomplicated; F32.A Depression, unspecified; F41.9 Anxiety disorder, unspecified; F17.290 Nicotine dependence, other tobacco product, uncomplicated; F12.90 Cannabis use, unspecified, uncomplicated; E66.9 Obesity, unspecified; Z68.32 Body mass index [BMI] 32.0-32.9, adult; Z79.51 Long term (current) use of inhaled steroids; Z98.890 Other specified postprocedural states; Z87.11 Personal history of peptic ulcer disease; Z86.0100 Personal history of colon polyps, unspecified
CPT/HCPCS: 45378; J2704; J7120